=== PATIENT | male | born 1990 | race Caucasian/White ===

== ENCOUNTER 2025-01-21 10:55 | Emergency (ER) | payer MEDICAID, OTHER ==
[~2025-01-21] VITALS: Ht 177.8 cm; Wt 85.3 kg
--- NOTE | 2025-01-21 11:47 | ED.PDOC ---
GI ASSESSMENT HPI Comments 34 year old male presents to the ED with a chief complaint of blood in stool onset today (01/21/25). Patient states for the past week he had been experiencing abdominal pain, loss of appetite past 3 days, lost about 8 lbs in the past week. Patient woke up today experiencing nausea/vomiting, noted blood in vomit and blood in bowel movement. He noticed abdominal pain was improved after the hematemesis, blood in stool. Denies any PMHx as well as chest pain,shortness of breath, fever, chills, dysuria, hematuria. No other symptoms or modifying factors present at this time. Chief Complaint: GI Bleed Time Seen by MD: 11:35 Primary Care Provider: none Reviewed Notes: Medications, Allergies Allergies: Coded Allergies: NO KNOWN ALLERGIES (Unverified , 06/05/15) Information Source: Patient Mode of Arrival: Ambulatory Timing: Hours Duration: Since onset Prehospital treatment: None Quality: Sharp Vomitus: Bloody Stool: Blood Streaked Severity: Moderate Recent: None Recent Hx of: None Pain Location: Diffuse Modifying Factors: Nothing Associated sign and symptoms: Nausea, Vomiting, Hematemesis, Abdominal Pain, Blood in Stool Past Medical History PAST MEDICAL HISTORY: Anxiety, Depression Surgical History: Denies all surgeries Family History Family History: Unknown Social History Smoker: Non-Smoker Alcohol: Heavy Drugs: Denies Drug Use Lives In: Home Constitutional: denies: chills, diaphoresis, fatigue, fever, malaise, sweats, weakness, others EENTM: denies: blurred vision, double vision, ear bleeding, ear discharge, ear drainage, ear pain, ear ringing, eye pain, eye redness, hearing loss, mouth pain, mouth swelling, nasal discharge, nose bleeding, nose congestion, nose pain, photophobia, tearing, throat pain, throat swelling, voice changes, others Respiratory: denies: cough, hemoptysis, orthopnea, SOB at rest, shortness of breath, SOB with excertion, stridor, wheezing, others Cardiovascular: denies: chest pain, dizzy spells, diaphoresis, Dyspnea on exertion, edema, irregular heart beat, left arm pain, lightheadedness, palpitations, PND, syncope, others Gastrointestinal: reports: abdominal pain, hematemesis, nausea, poor appetite, rectal bleeding, vomiting; denies: abdomen distended, blood streaked bowels, constipated, diarrhea, dysphagia, difficulty swallowing, melena, poor fluid in take, rectal pain, others Genitourinary: denies: burning, dysuria, flank pain, frequency, hematuria, incontinence, penile discharge, penile sore, pain, testicle pain, testicle swelling, urgency, others Neurological: denies: dizziness, fainting, headache, left sided numbness, left sided weakness, numbness, paresthesia, pre-existing deficit, right sided numbness, right sided weakness, seizure, speech problems, tingling, tremors, weakness, others Musculoskeletal: denies: back pain, gout, joint pain, joint swelling, muscle pain, muscle stiffness, neck pain, others Integumetry: denies: bruises, change in color, change in hair/nails, dryness, laceration, lesions, lumps, rash, wounds, others Allergic/Immunocompromised: denies: Difficulty Healing, Frequent Infections, Hives, Itching, others Hematologic/Lymphatic: denies: anemia, blood clots, easy bleeding, easy bruising, swollen glands, others Endocrine: reports: unexplained weight loss; denies: excessive hunger, excessi ve sweating, excessive thirst, excessive urination, flushing, intolerance to cold, intolerance to heat, unexplained weight gain, others Psychiatric: denies: anxiety, bipolar disorder, depression, hopeless, panic disorder, schizophrenia, sleepless, suicidal, others All Other Systems: Reviewed and Negative Physical Exam General Appearance: No Apparent Distress, Normal HEENT: Normal ENT Inspection, Pharynx Normal, TMs Normal Neck: Full Range of Motion, Non-Tender, Normal, Normal Inspection Respiratory: Chest Non-Tender, Lungs Clear, No Accessory Muscle Use, No Respiratory Distress, Normal Breath Sounds Cardiovascular: No Edema, No JVD, No Murmur, No Gallop, Normal Peripheral Pulses, Regular Rate/Rhythm Breast Exam: Deferred Gastrointestinal: No Organomegaly, Non Tender, No Pulsatile Mass, Normal Bowel Sounds, Soft Genitalia: Deferred Pelvic: Deferred Rectal: Deferred Extremities: No calf tenderness, Normal capillary refill, Normal inspection, Normal range of motion, Non-tender, No pedal edema Musculoskeletal : Apperance: Normal Neurologic: Alert, mold stamper II-XII nml as Tested, No Motor Deficits, Normal Affect, Normal Mood, No Sensory Deficits Cerebellar Function: Normal Reflexes: Normal Skin: Dry, Normal Color, Warm Lymphatic: No Adenopathy Was a procedure done? Was a procedure done?: No GI differential Dx Differential Diagnosis: Gastritis/PUD, Gastroenteritis, GI hemorrhage, Dehydration, Electrolyte Imbalance, Food Poisoning, Hypovolemia X-Ray, Labs, Meds, VS Vital Signs Date Time Temp Pulse Resp B/P (MAP) Pulse Ox O2 Delivery O2 Flow Rate FiO2 01/21/25 14:11 98.3 86 17 114/80 (91) 98 98.3 01/21/25 11:47 98.1 112 17 124/83 (97) 98 98.1 01/21/25 11:12 97.7 122 21 102/83 (89) 95 97.7 Lab Test 01/21/25 11:50 01/21/25 11:12 Range/Units White Blood Count 7.8 4.4-10.8 10^3/uL Red Blood Count 5.06 4.5-5.90 10^6/uL Hemoglobin 15.3 13.5-17.5 g/dL Hematocrit 44.5 41.0-53.0 % Mean Corpuscular Volume 87.9 80.0-100.0 fL Mean Corpuscular Hemoglobin 30.2 28.0-32.0 pg Mean Corpuscular Hemoglobin Concent 34.3 32.0-36.0 g/dL Red Cell Distribution Width 12.5 11.8-14.3 % Platelet Count 252 140-450 10^3/uL Mean Platelet Volume 8.7 6.9-10.8 fL Neutrophils (%) (Auto) 70.4 37.0-80.0 % Lymphocytes (%) (Auto) 20.7 10.0-50.0 % Monocytes (%) (Auto) 6.9 0.0-12.0 % Eosinophils (%) (Auto) 0.8 0.0-7.0 % Basophils (%) (Auto) 1.2 0.0-2.0 % Neutrophils # (Auto) 5.5 1.6-8.6 10 ^3/uL Lymphocytes # (Auto) 1.6 0.4-5.4 10 ^3/uL Monocytes # (Auto) 0.5 0-1.3 10 ^3/uL Eosinophils # (Auto) 0.1 0-0.8 10 ^3/uL Basophils # (Auto) 0.1 0-0.2 10 ^3/uL Nucleated Red Blood Cells 0.1 % Sodium Level 141 136-145 mmol/L Potassium Level 4.0 3.5-5.1 mmol/L Chloride Level 104 98-107 mmol/L Carbon Dioxide Level 28 20-31 mmol/L Anion Gap 9 5-15 Blood Urea Nitrogen 15 9-23 mg/dL Creatinine 0.96 0.700-1.30 mg/dL Glomerular Filtration Rate Calc 106 >90 mL/min BUN/Creatinine Ratio 15.6 10.0-20.0 Serum Glucose 106 74-106 mg/dL Calcium Level 10.3 8.7-10.4 mg/dL Urine Color Light-yellow Yellow Urine Clarity Clear Clear Urine pH 7.0 5.0-9.0 Urine Specific [place] 1.012 1.001-1.035 Urine Protein Negative Negative Urine Ketones 1+ H Negative Urine Blood Negative Negative /uL Urine Nitrite Negative Negative Urine Bilirubin Negative Negative Urine Urobilinogen Normal Negative mg/dL Urine Leukocyte Esterase Negative Negative /uL Urine RBC 1 0 - 3 /hpf Urine Microscopic WBC 2 0-3 /HPF Urine Squamous Epithelial Cells None seen <5 /hpf Urine Bacteria None seen None Seen /hpf Urine Mucus Few None Seen Urine Glucose Normal Normal mg/dL Current Medications Medications (Trade) Dose Ordered Sig/Prakash Route Start Time Stop Time Status Last Admin Sodium Chloride 1,000 ml @ 1,000 mls/hr Q1H ONCE IV 01/21/25 11:45 01/21/25 12:44 DC 01/21/25 12:39 Pantoprazole Sodium (Protonix) 40 mg ONCE ONCE IV 01/21/25 11:45 01/21/25 11:46 DC 01/21/25 12:40 Ondansetron HCl (Zofran) 4 mg ONCE ONCE IV 01/21/25 11:45 01/21/25 11:46 DC 01/21/25 12:40 Sodium Chloride 1,000 ml @ 1,000 mls/hr Q1H ONCE IV 01/21/25 14:00 01/21/25 14:59 DC 01/21/25 14:18 [facility] [id number] [place] [id number] Ph: [phone] DIAGNOSTIC IMAGING Diagnostic Imaging Report : [id number] Signed PATIENT: HEFELIX HERNÁNDEZCCT: [id number] UNIT: [id number] : 1990 LOC: ER ROOM / BED: / AGE / SEX: 34 / M ADM STATUS: REG ER SERVICE 1137 ORDERING PHYSICIAN: LISE ARECHIGA MD PROCEDURE(s): ABPLIV - CT AB PEL WITH IV CON ONLY REASON: bright red blood per rectum ORDER NUMBER(s): [id number], ACCESSION NUMBER(s): [id number] Exam: CT CT AB PEL WITH IV CON ONLY History: bright red blood per rectum COMPARISON: None Technique: Multidetector spiral CT of the abdomen and pelvis was performed from lung bases to pubic symphysis. Intravenous contrast was administered during this examination. Portal venous imaging was obtained. Axial, coronal and sag ittal multiplanar reformats were performed by the technologist on a separate workstation. Radiation Dose : Abdomen/Pelvis: CTDIvol 10.3 mGy, DLP 602.03 mGy*cm. CONTRAST: Type of contrast: Omni 300 Contrast injected: 100 mL Findings: Lung Bases: No acute or significant lung base finding. Normal heart size. No pleural or pericardial effusion. Liver: Diffuse hepatic steatosis. Gallbladder and biliary Tree: Unremarkable Spleen: Unremarkable Pancreas: The pancreas is normal in appearance without focal lesions or abnormal enhancement. Adrenal Glands: Unremarkable Kidneys: No hydronephrosis. Bladder: Unremarkable Bowel: The stomach is grossly normal in appearance. Small bowel and colon are normal in caliber and distribution. Normal appendix is visualized in the right lower quadrant without findings of appendicitis. Fluid in the colon suggests a diarrheal illness. Ascites: Absent Lymphadenopathy: No mesenteric, retroperitoneal or periportal lymphadenopathy. Abdominal wall and Mesentery: Fluid density in the right inguinal canal. Vasculature: The visualized abdominal aorta is normal in size and caliber. Abdo anselmo and pelvic vessels demonstrate normal enhancement. Pelvic Organs: Unremarkable Musculoskeletal: No aggressive focal bony lesions, acute fractures or dislocation. IMPRESSION: 1. No acute abdominal or pelvic finding. Fluid in the colon suggests a diarrheal illness. Diffuse hepatic steatosis. Small amount of fluid in the right inguinal canal. Radiation optimization: All CT scans at this facility use at least one of these dose optimization techniques: Automated exposure control mA and/or kV adjustment per patient size (includes targeted exams where dose is matched to clinical indication) or iterative reconstruction. HS:Y ATED BY: NOAH HERNANDEZ MD DICTATED DATE/TIME: 01/21/251317 SIGNED BY: NOAH HERNANDEZ MD SIGNED DATE/TIME: 01/21/251317 CC: Time of 1ST Reevaluation: 12:05 Reevaluation 1ST: Unchanged Patient Education/Counseling: Diagnosis, Treatment, Prognosis Family Education/Counseling: No Family Present Additional Information The following tests were ordered, and results were reviewed by me: CBC, BMP, CT AB PEL WITH IV CON I reviewed and agreed with the following test results read by other providers: CT AB PEL WITH IV CON I discussed treatment and results with medical personnel and: patient Comprehensive systems review obtained and negative except for what is stated in the HPI. Departure 1 Departure Time of Disposition: 15:50 (Patient presented with abdominal pain that was concerning for possible appendicits, gastritis, cholecystitis, colitis, gastroenteritis, or orther possible surgical emergency. Data: 1. I ordered and reviewed the result of at least 3 labs including a CBC, BMP, and Urinalysis. 2. I independently interpreted the following tests: CT Abdoment and Pelvis is concerning for benign abdomen .Risk:This patient has a high risk of morbidity due to further diagnostic testing or treatment and may suffer from an acute abdominal process disorder. Fortunately workup reveals benign abdomen and patient can be safely discharged to home with outpatient follow up.) Impression: Primary Impression: Gastroenteritis Disposition: 01 HOME / SELF CARE / HOMELESS Condition: Stable Additional Instructions: You likely have gastroenteritis. It is important to stay well hydrated and well rested. This usually resolves within 1 week. If your symptoms worsen or you have any other concerns please return to the ER. Critical Care Note Critical Care Time?: No Stability Stability form required: No I personally scribed for LISE ARECHIGA MD ([email or web address]) on 01/21/25 at 11:47. Electronically submitted by Suzette Brizuela ([email or web address]). I personally scribed for LISE ARECHIGA MD ([email or web address]) on 01/21/25 at 11:48. Electronically submitted by Suzette Brizuela ([email or web address]). I personally scribed for LISE ARECHIGA MD ([email or web address]) on 01/21/25 at 13:41. Electronically submitted by Suzette Brizuela ([email or web address]). LISE ARECHIGA MD January 21, 2025 11:47
[2025-01-21 12:00] LABS: Basophils # (auto) 0.1 10 ^3/uL (0-0.2); Basophils % (auto) 1.2 % (0.0-2.0); Eosinophils # (auto) 0.1 10 ^3/uL (0-0.8); Eosinophils % (auto) 0.8 % (0.0-7.0); Hematocrit 44.5 % (41.0-53.0); Hemoglobin 15.3 g/dL (13.5-17.5); Lymphocytes # (auto) 1.6 10 ^3/uL (0.4-5.4); Lymphocytes % (auto) 20.7 % (10.0-50.0); Mean Corpuscular Hemoglobin 30.2 pg (28.0-32.0); Mean Corpuscular Hgb Conc. 34.3 g/dL (32.0-36.0); Mean Corpuscular Volume 87.9 fL (80.0-100.0); Monocytes # (auto) 0.5 10 ^3/uL (0-1.3); Monocytes % (auto) 6.9 % (0.0-12.0); Neutrophils # (auto) 5.5 10 ^3/uL (1.6-8.6); Neutrophils % (auto) 70.4 % (37.0-80.0); Nucleated Red Blood Cells % 0.1 %; Platelet Count (auto) 252 10^3/uL (140-450); Red Blood Cells 5.06 10^6/uL (4.5-5.90); Red Cell Distribution Width 12.5 % (11.8-14.3); White Blood Cell 7.8 10^3/uL (4.4-10.8)
[2025-01-21 12:11] LABS: Chloride 104 mmol/L (98-107); Sodium 141 mmol/L (136-145)
[2025-01-21 12:12] LABS: Anion Gap 9 (5-15); Calcium 10.3 mg/dL (8.7-10.4); Carbon Dioxide 28 mmol/L (20-31)
[2025-01-21 12:14] LABS: Urine Bacteria None Seen /hpf (None Seen)
[2025-01-21 12:17] LABS: BUN/Creatinine Ratio 15.6 (10.0-20.0); Blood Urea Nitrogen 15 mg/dL (9-23); Glucose 106 mg/dL (74-106)
[2025-01-21 12:36] LABS: Urine Blood Negative /uL (Negative); Urine Clarity Clear (Clear); Urine Color Light-Yellow (Yellow); Urine Mucus FEW (None Seen); Urine Protein, UAD Negative (Negative); Urine Specific Gravity 1.012 (1.001-1.035); Urine Squamous Epithelial Cell None Seen /hpf (<5); Urine Urobilinogen Normal (Negative); Urine WBC 2 /HPF (0-3)
[2025-01-21] MEDS: SODIUM CHLORIDE 0.9% 1,000 ML IV ONE ×2 (12:39→14:18)
[2025-01-21] MEDS: PANTOPRAZOLE 40 MG/10 ML VIAL INJ IV ONE (12:40)
[2025-01-21] MEDS: ONDANSETRON HCL 4 MG/2 ML VIAL IV ONE (12:40)
[2025-01-21] MEDS: IOHEXOL 300 MG/ML 100ML BOTTLE IJ ONE (13:01)
--- NOTE | 2025-01-21 13:21 | DVH ---
Exam: CT CT AB PEL WITH IV CON ONLY History: bright red blood per rectum COMPARISON: None Technique: Multidetector spiral CT of the abdomen and pelvis was performed from lung bases to pubic symphysis. Intravenous contrast was administered during this examination. Portal venous imaging was obtained. Axial, coronal and sagittal multiplanar reformats were performed by the technologist on a separate workstation. Radiation Dose : Abdomen/Pelvis: CTDIvol 10.3 mGy, DLP 602.03 mGy*cm. CONTRAST: Type of contrast: Omni 300 Contrast injected: 100 mL Findings: Lung Bases: No acute or significant lung base finding. Normal heart size. No pleural or pericardial effusion. Liver: Diffuse hepatic steatosis. Gallbladder and biliary Tree: Unremarkable Spleen: Unremarkable Pancreas: The pancreas is normal in appearance without focal lesions or abnormal enhancement. Adrenal Glands: Unremarkable Kidneys: No hydronephrosis. Bladder: Unremarkable Bowel: The stomach is grossly normal in appearance. Small bowel and colon are normal in caliber and d istribution. Normal appendix is visualized in the right lower quadrant without findings of appendicit is. Fluid in the colon suggests a diarrheal illness. Ascites: Absent Lymphadenopathy: No mesenteric, retroperitoneal or periportal lymphadenopathy. Abdominal wall and Mesentery: Fluid density in the right inguinal canal. Vasculature: The visualized abdominal aorta is normal in size and caliber. Abdominal and pelvic vess els demonstrate normal enhancement. Pelvic Organs: Unremarkable Musculoskeletal: No aggressive focal bony lesions, acute fractures or dislocation. IMPRESSION: 1. No acute abdominal or pelvic finding. Fluid in the colon suggests a diarrheal illness. Diffuse hep atic steatosis. Small amount of fluid in the right inguinal canal. Radiation optimization: All CT scans at this facility use at least one of these dose optimization varun hniques: Automated exposure control mA and/or kV adjustment per patient size (includes targeted exams where dose is matched to clinical indication) or iterative reconstruction. HS:Y
[2025-01-21 14:11] VITALS: BP 114/80; PULSE 86; RESP 17; TEMP 98.3; O2SAT 98
--- NOTE | 2025-01-21 16:08 | ED.PDOC ---
Departure 1 Departure Time of Disposition: 15:50 (Patient presented with abdominal pain that was concerning for possible appendicits, gastritis, cholecystitis, colitis, gastroenteritis, or orther possible surgical emergency. Data: 1. I ordered and reviewed the result of at least 3 labs including a CBC, BMP, and Urinalysis. 2. I independently interpreted the following tests: CT Abdoment and Pelvis is concerning for benign abdomen .Risk:This patient has a high risk of morbidity due to further diagnostic testing or treatment and may suffer from an acute abdominal process disorder. Fortunately workup reveals benign abdomen and patient can be safely discharged to home with outpatient follow up.) Impression: Primary Impression: Gastroenteritis Disposition: 01 HOME / SELF CARE Condition: Stable Referrals: RADHA GROSS MD Additional Instructions: You likely have gastroenteritis. It is important to stay well hydrated and well rested. This usually resolves within 1 week. If your symptoms worsen or you have any other concerns please return to the ER. LISE ARECHIGA MD January 21, 2025 16:08
== END 2025-01-21 16:00 | disposition home or self-care (01) ==
LOC: ER 10:55
DX: K52.9 Noninfective gastroenteritis and colitis, unspecified (principal); F41.8 Other specified anxiety disorders; F10.20 Alcohol dependence, uncomplicated; Y90.9 Presence of alcohol in blood, level not specified
CPT/HCPCS: 36415; 74177; 80048; 81001; 85025; 96361; 96374; 96375; 99285; J2405; J2470; J7030; Q9967

== ENCOUNTER 2025-01-23 09:59 | Inpatient (IN) | payer MEDICAID ==
[~2025-01-23] VITALS: Ht 177.8 cm; Wt 74.5 kg
[2025-01-23 10:49] LABS: Basophils # (auto) 0.1 10 ^3/uL (0-0.2); Basophils % (auto) 0.8 % (0.0-2.0); Eosinophils # (auto) 0 10 ^3/uL (0-0.8); Eosinophils % (auto) 0.2 % (0.0-7.0); Hematocrit 39.9 % (41.0-53.0); Hemoglobin 13.8 g/dL (13.5-17.5); Lymphocytes # (auto) 1.4 10 ^3/uL (0.4-5.4); Lymphocytes % (auto) 17.1 % (10.0-50.0); Mean Corpuscular Hemoglobin 30.3 pg (28.0-32.0); Mean Corpuscular Hgb Conc. 34.7 g/dL (32.0-36.0); Mean Corpuscular Volume 87.3 fL (80.0-100.0); Monocytes # (auto) 0.4 10 ^3/uL (0-1.3); Monocytes % (auto) 4.5 % (0.0-12.0); Neutrophils # (auto) 6.2 10 ^3/uL (1.6-8.6); Neutrophils % (auto) 77.4 % (37.0-80.0); Nucleated Red Blood Cells % 0.1 %; Platelet Count (auto) 280 10^3/uL (140-450); Red Blood Cells 4.56 10^6/uL (4.5-5.90); Red Cell Distribution Width 12.7 % (11.8-14.3)
[2025-01-23] MEDS: SODIUM CHLORIDE 0.9% 1,000 ML IV ONE (10:56)
[2025-01-23] MEDS: PANTOPRAZOLE 40 MG/10 ML VIAL INJ IV ONE (10:56)
--- NOTE | 2025-01-23 11:03 | ED.PDOC ---
GI ASSESSMENT HPI Comments 34 year old male presents to the ED with chief complaint of hematemesis/melena. Patient reports that he has been experiencing black tar colored stools for the past 3 days with associated lower abdominal tenderness and coffee ground emesis since yesterday. Patient notes he had recent food poisoning 2 weeks ago. Patient denies any N/V/D, dizziness, fever, chills, chest pain, SOB, or hematochezia. Chief Complaint: GI Bleed Time Seen by MD: 11:01 Primary Care Provider: none Reviewed Notes: Nurses Notes, Medications, Allergies Allergies: Coded Allergies: NO KNOWN ALLERGIES (Unverified , 06/05/15) Information Source: Patient Mode of Arrival: Ambulatory Timing: Days Duration: Since onset Prehospital treatment: None Quality: Aching Vomitus: Coffee Grounds Stool: Black Severity: Moderate Recent: None Recent Hx of: None Pain Location: Suprapubic Associated sign and symptoms: Hematemesis, Melena, Abdominal Pain Past Medical History PAST MEDICAL HISTORY: Anxiety, Depression Surgical History: Denies all surgeries Family History Family History: Unknown Social History Smoker: Non-Smoker Alcohol: Heavy Drugs: Denies Drug Use Lives In: Home Constitutional: denies: chills, diaphoresis, fatigue, fever, malaise, sweats, weakness, others EENTM: denies: blurred vision, double vision, ear bleeding, ear discharge, ear drainage, ear pain, ear ringing, eye pain, eye redness, hearing loss, mouth pain, mouth swelling, nasal discharge, nose bleeding, nose congestion, nose pain, photophobia, tearing, throat pain, throat swelling, voice changes, others Respiratory: denies: cough, hemoptysis, orthopnea, SOB at rest, shortness of breath, SOB with excertion, stridor, wheezing, others Cardiovascular: denies: chest pain, dizzy spells, diaphoresis, Dyspnea on exertion, edema, irregular heart beat, left arm pain, lightheadedness, palpitations, PND, syncope, others Gastrointestinal: reports: abdominal pain, hematemesis, melena; denies: abdomen distended, blood streaked bowels, constipated, diarrhea, dysphagia, difficulty swallowing, nausea, poor appetite, poor fluid intake, rectal bleeding, rectal pain, vomiting, others Genitourinary: denies: burning, dysuria, flank pain, frequency, hematuria, incontinence, penile discharge, penile sore, pain, testicle pain, testicle swelling, urgency, others Neurological: denies: dizziness, fainting, headache, left sided numbness, left sided weakness, numbness, paresthesia, pre-existing deficit, right sided numbness, right sided weakness, seizure, speech problems, tingling, tremors, weakness, others Musculoskeletal: denies: back pain, gout, joint pain, joint swelling, muscle pain, muscle stiffness, neck pain, others Integumetry: denies: bruises, change in color, change in hair/nails, dryness, laceration, lesions, lumps, rash, wounds, others Hematologic/Lymphatic: denies: anemia, blood clots, easy bleeding, easy bruising, swollen glands, others Endocrine: denies: excessive hunger, excessive sweating, excessive thirst, excessive urination, flushing, intolerance to cold, intolerance to heat, unexplained weight gain, unexplained weight loss, others Psychiatric: denies: anxiety, bipolar disorder, depression, hopeless, panic disorder, schizophrenia, sleepless, suicidal, others All Other Systems: Reviewed and Negative Physical Exam General Appearance: Moderate Distress, Normal HEENT: Normal ENT Inspection, PERRL/EOMI, Pharynx Normal, TMs Normal Neck: Full Range of Motion, Non-Tender, Normal, Normal Inspection Respiratory: Chest Non-Tender, Lungs Clear, No Accessory Muscle Use, No Respiratory Distress, Normal Breath Sounds Cardiovascular: No Edema, No JVD, No Murmur, No Gallop, Normal Peripheral Pulses, Regular Rate/Rhythm, Tachycardia Breast Exam: Deferred Gastrointestinal: Diffuse, Epigastric, No Organomegaly, No Pulsatile Mass, Normal Bowel Sounds, Soft, Tenderness Genitalia: Deferred Pelvic: Deferred Rectal: Deferred Extremities: No calf tenderness, Normal capillary refill, Normal inspection, Normal range of motion, Non-tender, No pedal edema Musculoskeletal : Apperance: Normal Neurologic: Alert, dental treatment coordinator II-XII nml as Tested, No Motor Deficits, Normal Affect, Normal Mood, No Sensory Deficits Cerebellar Function: Normal Reflexes: Normal Skin: Dry, Normal Color, Warm Peripheral Pulses: 1+ carotid (R), 1+ carotid (L) Lymphatic: No Adenopathy EKG EKG : [place]: Normal Cardiac Rhythm: ST Was a procedure done? Was a procedure done?: No GI differential Dx Differential Diagnosis: Gastritis/PUD, Gastroenteritis, GI hemorrhage, Inflammatory BD, Pancreatitis, Dehydration, Diabetes/ DKA, Drug toxicity, Electrolyte Imbalance, Anemia X-Ray, Labs, Meds, VS Vital Signs Date Time Temp Pulse Resp B/P (MAP) Pulse Ox O2 Delivery O2 Flow Rate FiO2 01/23/25 10:20 145 01/23/25 10:20 97.8 125 18 126/75 (92) 99 97.8 Lab Test 01/23/25 10:28 Range/Units White Blood Count 8.0 4.4-10.8 10^3/uL Red Blood Count 4.56 4.5-5.90 10^6/uL Hemoglobin 13.8 13.5-17.5 g/dL Hematocrit 39.9 #L 41.0-53.0 % Mean Corpuscular Volume 87.3 80.0-100.0 fL Mean Corpuscular Hemoglobin 30.3 28.0-32.0 pg Mean Corpuscular Hemoglobin Concent 34.7 32.0-36.0 g/dL Red Cell Distribution Width 12.7 11.8-14.3 % Platelet Count 280 140-450 10^3/uL Mean Platelet Volume 8.8 6.9-10.8 fL Neutrophils (%) (Auto) 77.4 37.0-80.0 % Lymphocytes (%) (Auto) 17.1 10.0-50.0 % Monocytes (%) (Auto) 4.5 0.0-12.0 % Eosinophils (%) (Auto) 0.2 0.0-7.0 % Basophils (%) (Auto) 0.8 0.0-2.0 % Neutrophils # (Auto) 6.2 1.6-8.6 10 ^3/uL Lymphocytes # (Auto) 1.4 0.4-5.4 10 ^3/uL Monocytes # (Auto) 0.4 0-1.3 10 ^3/uL Eosinophils # (Auto) 0 0-0.8 10 ^3/uL Basophils # (Auto) 0.1 0-0.2 10 ^3/uL Nucleated Red Blood Cells 0.1 % Prothrombin Time 11.4 9.3-11.8 sec Prothrombin Time INR 1.08 0.9-1.15 Activated Partial Thromboplast Time 25.9 24.5-34.5 SEC Sodium Level 139 136-145 mmol/L Potassium Level 4.2 3.5-5.1 mmol/L Chloride Level 102 98-107 mmol/L Carbon Dioxide Level 28 20-31 mmol/L Anion Gap 9 5-15 Blood Urea Nitrogen 14 9-23 mg/dL Creatinine 0.94 0.700-1.30 mg/dL Glomerular Filtration Rate Calc 109 >90 mL/min BUN/Creatinine Ratio 14.9 10.0-20.0 Serum Glucose 106 74-106 mg/dL Lactic Acid Level 1.6 0.4-2.0 mmol/L Calcium Level 9.6 8.7-10.4 mg/dL Total Bilirubin 0.7 0.2-1.0 mg/dL Aspartate Amino Transferase (AST) 11 L 13-40 U/L Alanine Aminotransferase (ALT) 23 7-40 U/L Alkaline Phosphatase 58 46-116 U/L Total Protein 7.4 5.7-8.2 g/dL Albumin 5.0 H 3.2-4.8 g/dL Lipase 43 12-53 U/L Current Medications Medications (Trade) Dose Ordered Sig/Prakash Route Start Time Stop Time Status Last Admin Sodium Chloride 1,000 ml @ 1,000 mls/hr Q1H ONCE IV 01/23/25 10:30 01/23/25 11:29 DC 01/23/25 10:56 Pantoprazole Sodium (Protonix) 40 mg ONCE ONCE IV 01/23/25 10:30 01/23/25 10:31 DC 01/23/25 10:56 X-Ray, Labs, Meds, VS Comment Course in the emergency department eventful patient came in because of GI bleed from the vomitus which is blackish to the rectal bleeding and abdominal from EKG shows sinus tachycardia at 145 CBC normal CMP negative Lactic acid 1.6 Lipase 43 INR 1.08 Type and screen Patient will be admitted for further care Time of 1ST Reevaluation: 12:01 Reevaluation 1ST: Unchanged Time of 2ND Reevaluation: 12:17 Reevaluation 2ND: Unchanged Patient Education/Counseling: Diagnosis, Treatment, Prognosis Family Education/Counseling: Diagnosis, Treatment, Prognosis, No Family Present Departure 1 Departure Time of Disposition: 12:18 Impression: Primary Impression: Acute GI bleeding Additional Impression: Tachycardia determined by examination of pulse Disposition: ADMITTED INPATIENT Admit to: Tele Condition: Serious Critical Care Note Critical Care Time?: No Stability Stability form required: Yes Unstable for transfer: Telemetry monitoring (Telemetry monitoring required), Requires medication (Requires Med for stabilization) Heart Score Heart Score: Heart Score Response (Comments) Value History N/A 0 EKG N/A 0 Age <45 0 Risk Factors No known risk factors 0 Troponin N/A 0 Total 0 I personally scribed for WILIAN POWELL MD ([email or web address]) on 01/23/25 at 11:03. Electronically submitted by Abelino Norton ([email or web address]). WILIAN POWELL MD January 23, 2025 11:03
[2025-01-23 11:05] LABS: INR 1.08 (0.9-1.15); Partial Thromboplastin Time 25.9 SEC (24.5-34.5); Prothrombin Time 11.4 sec (9.3-11.8)
[2025-01-23 11:06] LABS: Alanine Aminotransferase 23 U/L (7-40); Alkaline Phosphatase 58 U/L (46-116); Anion Gap 9 (5-15); BUN/Creatinine Ratio 14.9 (10.0-20.0); Bilirubin, Total 0.7 mg/dL (0.2-1.0); Blood Urea Nitrogen 14 mg/dL (9-23); Calcium 9.6 mg/dL (8.7-10.4); Carbon Dioxide 28 mmol/L (20-31); Chloride 102 mmol/L (98-107); Lipase 43 U/L (12-53); Potassium 4.2 mmol/L (3.5-5.1); Sodium 139 mmol/L (136-145); Total Protein 7.4 g/dL (5.7-8.2)
[2025-01-23 11:07] LABS: Aspartate Aminotransferase 11 U/L (13-40); Glucose 106 mg/dL (74-106)
--- NOTE | 2025-01-23 14:44 | DVHHP2 ---
History of Present Illness Reason for Visit: Coffee-ground emesis and black colored stools for last three days. History of Present Illness 34-year-old male with a no significant past medical history except anxiety and depression, chronic alcoholism initially presented to the hospital with a diarrhea for last three days. Patient was here seen two days ago for the same and his symptoms out better and he was discharged from ER. Patient has stated that he started having diarrhea again associated with a black stool with a bright red as well as coffee-ground emesis. Also complaining of lower abdominal pain. Recent CT abdomen and pelvis was done which shows no evidence of acute pathology. Patient was recommended to be admitted. Patient denies any NSAID use but does admit to alcohol use. GI: GI bleed, Other (Diarrhea.) Past Surgical History: Hernia Repair Family History: None Smoke: No ALCOHOL: heavy Review of Systems Review of Systems Twelve review of system are negative besides mentioned above. 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 Labs/Xrays Labs Test 01/23/25 10:28 Range/Units White Blood Count 8.0 4.4-10.8 10^3/uL Red Blood Count 4.56 4.5-5.90 10^6/uL Hemoglobin 13.8 13.5-17.5 g/dL Hematocrit 39.9 #L 41.0-53.0 % Mean Corpuscular Volume 87.3 80.0-100.0 fL Mean Corpuscular Hemoglobin 30.3 28.0-32.0 pg Mean Corpuscular Hemoglobin Concent 34.7 32.0-36.0 g/dL Red Cell Distribution Width 12.7 11.8-14.3 % Platelet Count 280 140-450 10^3/uL Mean Platelet Volume 8.8 6.9-10.8 fL Neutrophils (%) (Auto) 77.4 37.0-80.0 % Lymphocytes (%) (Auto) 17.1 10.0-50.0 % Monocytes (%) (Auto) 4.5 0.0-12.0 % Eosinophils (%) (Auto) 0.2 0.0-7.0 % Basophils (%) (Auto) 0.8 0.0-2.0 % Neutrophils # (Auto) 6.2 1.6-8.6 10 ^3/uL Lymphocytes # (Auto) 1.4 0.4-5.4 10 ^3/uL Monocytes # (Auto) 0.4 0-1.3 10 ^3/uL Eosinophils # (Auto) 0 0-0.8 10 ^3/uL Basophils # (Auto) 0.1 0-0.2 10 ^3/uL Nucleated Red Blood Cells 0.1 % Prothrombin Time 11.4 9.3-11.8 sec Prothrombin Time INR 1.08 0.9-1.15 Activated Partial Thromboplast Time 25.9 24.5-34.5 SEC Sodium Level 139 136-145 mmol/L Potassium Level 4.2 3.5-5.1 mmol/L Chloride Level 102 98-107 mmol/L Carbon Dioxide Level 28 20-31 mmol/L Anion Gap 9 5-15 Blood Urea Nitrogen 14 9-23 mg/dL Creatinine 0.94 0.700-1.30 mg/dL Glomerular Filtration Rate Calc 109 >90 mL/min BUN/Creatinine Ratio 14.9 10.0-20.0 Serum Glucose 106 74-106 mg/dL Lactic Acid Level 1.6 0.4-2.0 mmol/L Calcium Level 9.6 8.7-10.4 mg/dL Total Bilirubin 0.7 0.2-1.0 mg/dL Aspartate Amino Transferase (AST) 11 L 13-40 U/L Alanine Aminotransferase (ALT) 23 7-40 U/L Alkaline Phosphatase 58 46-116 U/L Total Protein 7.4 5.7-8.2 g/dL Albumin 5.0 H 3.2-4.8 g/dL Lipase 43 12-53 U/L Assessment/Plan Assessment/Plan 34-year-old male with a known history of anxiety and depression currently not on any medications, chronic alcoholism presented to the hospital with coffee- ground emesis along with the diarrhea and black stools found to have 1. Hematemesis 2.Melena rule out upper GI bleed 3. Diarrhea rule out C diff 4. Chronic alcoholism -admit to med surge, clear liquid diet, Protonix, GI consultation Plan discussed with: Patient My Orders Orders - MONICA BONNER MD Procedure Category Date Status Time Admit ADMIT 01/23/25 Transmitted 14:35 Code Status CODE 01/23/25 Transmitted 14:35 0.9% Ns 1000 Ml PHA 01/23/25 Transmitted 14:45 Hydrocodone-Acet PHA 01/23/25 Transmitted 5/325mg Tab ([place] 14:45 Ondansetron Hcl PHA 01/23/25 Transmitted (Zofran) 14:45 Condition: Fair ISABEL 01/23/25 Transmitted 14:35 Acetaminophen Tablet PHA 01/23/25 Transmitted (Tylenol Tablet) 14:45 Clear Liq Diet DIET 01/23/25 Transmitted Dinner Morphine Sulfate PHA 01/23/25 Transmitted Injection 14:45 * Gi Dvh Grill Attendant CONS 01/23/25 Transmitted 14:35 Pantoprazole PHA 01/23/25 Transmitted (Protonix) 22:00 Clostridium Difficile CHRISTIANO 01/23/25 Transmitted Toxin 14:35 Date of Service: January 23, 2025 Billing Provider: MONICA BONNER MD Common Visit Codes: NOT BILLABLE MONICA BONNER MD January 23, 2025 14:44
[2025-01-23] MEDS ORDERED: HYDROcodone-ACET 5/325MG TAB PO PRN (14:45)
[2025-01-23] MEDS ORDERED: ACETAMINOPHEN 325 MG TAB PO PRN (14:45)
[2025-01-23] MEDS ORDERED: MORPHINE SULFATE INJ 2 MG/ml SYRG IV PRN (14:45)
[2025-01-23] MEDS: SODIUM CHLORIDE 0.9% 1,000 ML IV SCH (14:45)
[2025-01-23 18:30] VITALS: BP 113/75; PULSE 100; RESP 15; TEMP 99.1; O2SAT 98
[2025-01-23 20:14] VITALS: BP 113/75; PULSE 100; RESP 15; TEMP 99.1; O2SAT 98
[2025-01-23 21:00] VITALS: BP 117/76; PULSE 94; RESP 16; TEMP 98.4; O2SAT 99
--- NOTE | 2025-01-23 22:17 | DVHINCON2 ---
Date of service: January 23, [address] Gtz Reason for Consultation GI bleed History of Present Illness 34-year-old male presented with moderate amount of rectal bleeding mixed with clots followed by melena and one episode of coffee ground emesis. Patient was here seen two days ago for lower abd pain and dark stools ;his symptoms got better and he was discharged from ER. Patient has stated that he started having diarrhea again associated with bright red blood with clots followed by liquid melena as well as coffee-ground emesis. Recent CT abdomen and pelvis was done which shows no evidence of acute pathology. Patient denies any NSAID use but does admit to alcohol use. Past Medical History Anxiety and depression, chronic alcoholism Past Surgical History Past Surgical History: Hernia Repair Family History: Patient reports no known family medical history. Allergies: Coded Allergies: NO KNOWN ALLERGIES (Unverified , 06/05/15) Home Meds No Active Prescriptions or Reported Meds Current Medications Current Medications Medications (Trade) Dose Ordered Sig/Prakash Route PRN Reason Start Time Stop Time Status Last Admin Sodium Chloride 1,000 ml @ 120 mls/hr Q8H20M IV 01/23/25 14:45 Acetaminophen/ Hydrocodone Bitart ([place] 5/325MG Tab) 1 tab Q4HP PRN PO MODERATE PAIN (4-6 PAIN SCALE) 01/23/25 14:45 Ondansetron HCl (Zofran) 4 mg Q4HP PRN IV NAUSEA / VOMITING 01/23/25 14:45 Acetaminophen (Tylenol Tablet) 650 mg Q6HP PRN PO PAIN SCALE 1-3 OR TEMP>100.4 01/23/25 14:45 Morphine Sulfate 2 mg Q4HPRN PRN IV SEVERE PAIN (7-10 PAIN SCALE) 01/23/25 14:45 Pantoprazole Sodium (Protonix) 40 mg BID IV 01/23/25 22:00 Review of Systems No prior endoscopy or colonoscopy Vital Signs Vital Signs Date Time Temp Pulse Resp B/P (MAP) Pulse Ox O2 Delivery O2 Flow Rate FiO2 01/23/25 21:00 98.4 94 16 117/76 (90) 99 98.4 01/23/25 14:30 Room Air* 0 21 Physical Exam HEENT pupils are reactive Neck is supple CV is S1-S2 regular rate and rhythm Respiratory are clear GI positive bowel sounds soft nondistended nontender no guarding no rigidity Extremities no 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 Labs/Diagnostic Data Labs Test 01/23/25 10:28 Range/Units White Blood Count 8.0 4.4-10.8 10^3/uL Red Blood Count 4.56 4.5-5.90 10^6/uL Hemoglobin 13.8 13.5-17.5 g/dL Hematocrit 39.9 #L 41.0-53.0 % Mean Corpuscular Volume 87.3 80.0-100.0 fL Mean Corpuscular Hemoglobin 30.3 28.0-32.0 pg Mean Corpuscular Hemoglobin Concent 34.7 32.0-36.0 g/dL Red Cell Distribution Width 12.7 11.8-14.3 % Platelet Count 280 140-450 10^3/uL Mean Platelet Volume 8.8 6.9-10.8 fL Neutrophils (%) (Auto) 77.4 37.0-80.0 % Lymphocytes (%) (Auto) 17.1 10.0-50.0 % Monocytes (%) (Auto) 4.5 0.0-12.0 % Eosinophils (%) (Auto) 0.2 0.0-7.0 % Basophils (%) (Auto) 0.8 0.0-2.0 % Neutrophils # (Auto) 6.2 1.6-8.6 10 ^3/uL Lymphocytes # (Auto) 1.4 0.4-5.4 10 ^3/uL Monocytes # (Auto) 0.4 0-1.3 10 ^3/uL Eosinophils # (Auto) 0 0-0.8 10 ^3/uL Basophils # (Auto) 0.1 0-0.2 10 ^3/uL Nucleated Red Blood Cells 0.1 % Prothrombin Time 11.4 9.3-11.8 sec Prothrombin Time INR 1.08 0.9-1.15 Activated Partial Thromboplast Time 25.9 24.5-34.5 SEC Sodium Level 139 136-145 mmol/L Potassium Level 4.2 3.5-5.1 mmol/L Chloride Level 102 98-107 mmol/L Carbon Dioxide Level 28 20-31 mmol/L Anion Gap 9 5-15 Blood Urea Nitrogen 14 9-23 mg/dL Creatinine 0.94 0.700-1.30 mg/dL Glomerular Filtration Rate Calc 109 >90 mL/min BUN/Creatinine Ratio 14.9 10.0-20.0 Serum Glucose 106 74-106 mg/dL Lactic Acid Level 1.6 0.4-2.0 mmol/L Calcium Level 9.6 8.7-10.4 mg/dL Total Bilirubin 0.7 0.2-1.0 mg/dL Aspartate Amino Transferase (AST) 11 L 13-40 U/L Alanine Aminotransferase (ALT) 23 7-40 U/L Alkaline Phosphatase 58 46-116 U/L Total Protein 7.4 5.7-8.2 g/dL Albumin 5.0 H 3.2-4.8 g/dL Lipase 43 12-53 U/L CT SCAN ABD PELVIS IMPRESSION: 1. No acute abdominal or pelvic finding. Fluid in the colon suggests a diarrheal illness. Diffuse hepatic steatosis. Small amount of fluid in the right inguinal canal. Problems(with codes): (1) Coffee ground emesis (2) Melena (3) Acute GI bleeding (4) Gastroenteritis Plan/Recommendation PLAN IV fluid hydration IV Protonix 40 mg q.12 hours Clear liquid diet Carafate suspension 1 g p.o. 4 times a day Monitor serial H&H Awaiting stool studies Pain control and Zofran as needed for nausea and vomiting Patient will likely need an endoscopy to rule out Katy-Andino tear peptic ulcer disease or GERD ; I will schedule on 01/25/2025 If the above endoscopy is negative then a colonoscopy will be considered to rule out colitis Plan discussed with: Patient, Spouse RADHA GROSS MD January 23, 2025 22:17
[2025-01-23] MEDS: PANTOPRAZOLE 40 MG/10 ML VIAL INJ IV SCH (22:45)
[2025-01-24 01:00] VITALS: BP 103/69; PULSE 94; RESP 17; TEMP 98.1; O2SAT 98
[2025-01-24 05:00] VITALS: BP 126/77; PULSE 98; RESP 19; TEMP 97.6; O2SAT 98
[2025-01-24] MEDS: SUCRALFATE 1 GM/10 ML ORAL SUSP PO SCH (05:57)
--- NOTE | 2025-01-24 06:40 | DVH ---
EXAM: XR Chest, 1 View CLINICAL INDICATION: For GI procedure TECHNIQUE: Frontal view of the chest. COMPARISON: None FINDINGS: LUNGS AND PLEURAL SPACES: Unremarkable. No consolidation. No pneumothorax. HEART: Unremarkable. No cardiomegaly. MEDIASTINUM: Unremarkable. Normal mediastinal contour. BONES/JOINTS: Unremarkable. No acute fracture. OTHER FINDINGS: . IMPRESSION: No acute cardiopulmonary process.
[2025-01-24 06:51] LABS: Basophils # (auto) 0 10 ^3/uL (0-0.2); Basophils % (auto) 0.5 % (0.0-2.0); Eosinophils # (auto) 0.1 10 ^3/uL (0-0.8); Eosinophils % (auto) 1.6 % (0.0-7.0); Hematocrit 30.6 % (41.0-53.0); Hemoglobin 10.7 g/dL (13.5-17.5); Lymphocytes # (auto) 1.7 10 ^3/uL (0.4-5.4); Lymphocytes % (auto) 28.9 % (10.0-50.0); Mean Corpuscular Hemoglobin 30.4 pg (28.0-32.0); Mean Corpuscular Hgb Conc. 34.8 g/dL (32.0-36.0); Mean Corpuscular Volume 87.3 fL (80.0-100.0); Monocytes # (auto) 0.5 10 ^3/uL (0-1.3); Monocytes % (auto) 7.7 % (0.0-12.0); Neutrophils # (auto) 3.7 10 ^3/uL (1.6-8.6); Neutrophils % (auto) 61.3 % (37.0-80.0); Nucleated Red Blood Cells % 0.1 %; Platelet Count (auto) 208 10^3/uL (140-450); Red Blood Cells 3.51 10^6/uL (4.5-5.90); Red Cell Distribution Width 12.4 % (11.8-14.3)
[2025-01-24 07:03] LABS: Urine Bacteria None Seen /hpf (None Seen)
[2025-01-24 07:44] LABS: Urine Blood Negative /uL (Negative); Urine Clarity Clear (Clear); Urine Color Light-Yellow (Yellow); Urine Mucus FEW (None Seen); Urine Protein, UAD Negative (Negative); Urine Specific Gravity 1.021 (1.001-1.035); Urine Squamous Epithelial Cell None Seen /hpf (<5); Urine Urobilinogen Normal (Negative); Urine WBC 3 /HPF (0-3)
[2025-01-24 08:00] VITALS: RESP 18
[2025-01-24 13:00] VITALS: BP 125/75; PULSE 83; RESP 18; TEMP 98.3; O2SAT 97
--- NOTE | 2025-01-24 14:09 | DVHPN2 ---
Subjective Patient denies any blood in his stool. 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 Medications Current Medications Medications Dose Ordered Sig/Prakash Route Start Time Stop Time Status Last Admin Dose Admin Sodium Chloride 1,000 ml @ 120 mls/hr Q8H20M IV 01/23/25 14:45 01/24/25 11:37 120 MLS/HR Acetaminophen/ Hydrocodone Bitart 1 tab Q4HP PRN PO 01/23/25 14:45 Ondansetron HCl 4 mg Q4HP PRN IV 01/23/25 14:45 Acetaminophen 650 mg Q6HP PRN PO 01/23/25 14:45 Morphine Sulfate 2 mg Q4HPRN PRN IV 01/23/25 14:45 Pantoprazole Sodium 40 mg BID IV 01/23/25 22:00 01/24/25 11:31 40 MG Sucralfate 1 gm QID@0600,1130,1700,2200 PO 01/24/25 06:00 01/24/25 11:31 1 GM Laboratory Results Laboratory Tests 01/23/25 10:28 01/24/25 05:55 Urinalysis Test 01/24/25 06:55 Urine Color Light-yellow (Yellow) Urine Clarity Clear (Clear) Urine pH 6.0 (5.0-9.0) Urine Specific [place] 1.021 (1.001-1.035) Urine Protein Negative (Negative) Urine Ketones 2+ (Negative) H Urine Blood Negative /uL (Negative) Urine Nitrite Negative (Negative) Urine Bilirubin Negative (Negative) Urine Urobilinogen Normal mg/dL (Negative) Urine Leukocyte Esterase Negative /uL (Negative) Urine RBC 1 /hpf (0 - 3) Urine Microscopic WBC 3 /HPF (0-3) Urine Squamous Epithelial Cells None seen /hpf (<5) Urine Bacteria None seen /hpf (None Seen) Urine Mucus Few (None Seen) Urine Glucose Normal mg/dL (Normal) Assessment/Plan Assessment/Plan 34-year-old male with a known history of anxiety and depression currently not on any medications, chronic alcoholism presented to the hospital with coffee- ground emesis along with the diarrhea and black stools found to have 1. Hematemesis 2.Melena rule out upper GI bleed 3. Diarrhea rule out C diff 4. History of chronic alcoholism, quit 10 years ago 5. Chronic marijuana use -admit to med surge, clear liquid diet, Protonix, GI consultation appreciated -endoscopy per GI. Plan discussed with: Patient My Orders Orders - MONICA BONNER MD Procedure Category Date Status Time Admit ADMIT 01/23/25 Transmitted 14:35 Code Status CODE 01/23/25 Transmitted 14:35 Sodium Chloride 0.9% PHA 01/23/25 In Process 14:45 Hydrocodone-Acet PHA 01/23/25 In Process 5/325mg Tab ([place] 14:45 Ondansetron Hcl PHA 01/23/25 In Process (Zofran) 14:45 Condition: Fair ISABEL 01/23/25 In Process 14:35 Acetaminophen Tablet PHA 01/23/25 In Process (Tylenol Tablet) 14:45 Clear Liq Diet DIET 01/23/25 Transmitted Dinner Morphine Sulfate PHA 01/23/25 In Process Injection 14:45 * Gi Dvh Agricultural Economics Teacher CONS 01/23/25 Transmitted 14:35 Pantoprazole PHA 01/23/25 In Process (Protonix) 22:00 Clostridium Difficile CHRISTIANO 01/23/25 In Process Toxin 14:35 * Dietary Consult CONS 01/23/25 Transmitted 21:49 Date of Service: January 24, 2025 Billing Provider: MONICA BONNER MD Common Visit Codes: NOT BILLABLE MONICA BONNER MD January 24, 2025 14:09
[2025-01-24] MEDS: ONDANSETRON HCL 4 MG/2 ML VIAL IV PRN (16:30)
[2025-01-24 17:00] VITALS: BP 109/65; PULSE 109; RESP 16; TEMP 98; O2SAT 98
[2025-01-24] MEDS: SODIUM CHLORIDE 0.9% 1,000 ML IV SCH (17:45)
[2025-01-24 18:34] LABS: Basophils # (auto) 0 10 ^3/uL (0-0.2); Basophils % (auto) 0.3 % (0.0-2.0); Eosinophils # (auto) 0.1 10 ^3/uL (0-0.8); Eosinophils % (auto) 0.5 % (0.0-7.0); Hematocrit 27.9 % (41.0-53.0); Hemoglobin 9.5 g/dL (13.5-17.5); Lymphocytes # (auto) 1.8 10 ^3/uL (0.4-5.4); Lymphocytes % (auto) 14.6 % (10.0-50.0); Mean Corpuscular Hemoglobin 29.7 pg (28.0-32.0); Mean Corpuscular Hgb Conc. 33.8 g/dL (32.0-36.0); Mean Corpuscular Volume 87.9 fL (80.0-100.0); Monocytes # (auto) 0.7 10 ^3/uL (0-1.3); Monocytes % (auto) 5.4 % (0.0-12.0); Neutrophils # (auto) 9.6 10 ^3/uL (1.6-8.6); Neutrophils % (auto) 79.2 % (37.0-80.0); Platelet Count (auto) 246 10^3/uL (140-450); Red Blood Cells 3.18 10^6/uL (4.5-5.90); Red Cell Distribution Width 12.4 % (11.8-14.3); White Blood Cell 12.2 10^3/uL (4.4-10.8)
[2025-01-24 21:00] VITALS: BP 116/66; PULSE 127; RESP 18; TEMP 98.2; O2SAT 98
[2025-01-24] MEDS: metroNIDAZOLE 500MG/100ML 100 ML IV SCH (21:53)
[2025-01-25] VITALS (8 sets, daily range): BP systolic 121–135; BP diastolic 59–71; PULSE 111–135; RESP 16–18; TEMP 98.2–98.8; O2SAT 97–100
[2025-01-25 08:02] LABS: Eosinophils # (auto) 0.1 10 ^3/uL (0-0.8); Hemoglobin 8.1 g/dL (13.5-17.5); Lymphocytes # (auto) 1.8 10 ^3/uL (0.4-5.4); Monocytes # (auto) 0.4 10 ^3/uL (0-1.3); Neutrophils # (auto) 4.3 10 ^3/uL (1.6-8.6)
[2025-01-25 08:04] LABS: Basophils # (auto) 0 10 ^3/uL (0-0.2); Basophils % (auto) 0.6 % (0.0-2.0); Eosinophils % (auto) 0.9 % (0.0-7.0); Hematocrit 23.6 % (41.0-53.0); Lymphocytes % (auto) 27.2 % (10.0-50.0); Mean Corpuscular Hgb Conc. 34.2 g/dL (32.0-36.0); Mean Corpuscular Volume 87.6 fL (80.0-100.0); Monocytes % (auto) 6.3 % (0.0-12.0); Platelet Count (auto) 200 10^3/uL (140-450); Red Cell Distribution Width 12.8 % (11.8-14.3); White Blood Cell 6.7 10^3/uL (4.4-10.8)
[2025-01-25] MEDS: cefTRIAXone 1GM/50ML D5W 50 ML IV SCH (08:23)
[2025-01-25] MEDS: MAGNESIUM CITRATE SOLUTION 300 ML BTL PO ONE (08:23)
--- NOTE | 2025-01-25 14:00 | ECG ---
[facility] Test Date: 2025-01-23 Test Time: 10:20:57 Pat Name: ISAC SERRATO Department: ED Room: 0232T Gender: M Us Administrative Law Judge: GEORGIE : 1990 Requested By: WILIAN POWELL Order Number: [id number] Reading MD: Edouard Benavides Measurements Intervals [place] Rate: 145 P: 76 WA: 115 QRS: 57 QRSD: 88 T: -13 QT: 281 QTc: 437 Interpretive Statements Sinus tachycardia Multiple ventricular premature complexes Aberrant conduction of SV complex(es) Inferior infarct, age indeterminate Lateral leads are also involved Baseline wander in lead(s) I,III,aVL,aVF,V1,V2,V3 Electronically Signed On 01-28-2025 11:39:19 PDT by Edouard Benavides Please click the below link to view image of tracing.
[2025-01-25] MEDS ORDERED: MIDAZOLAM HCL 2MG/2ML 2ml VIAL (1mg/ml) ONE (14:38)
[2025-01-25] MEDS ORDERED: fentaNYL CITRATE 100 MCG/2 ML VL ONE (14:38)
[2025-01-25] MEDS ORDERED: DexAMETHasone SOD PHOS 10MG/1ML VIAL INJ ONE (14:47)
[2025-01-25] MEDS ORDERED: KETAMINE 50mg/ML 1ml syringe ONE (14:47)
[2025-01-25] MEDS ORDERED: PROPOFOL 10 MG/ML 20 ML IV ONE (14:47)
[2025-01-25] MEDS ORDERED: EPINEPHrine HCL 1 MG/10 ML SYRG ONE (14:53)
--- NOTE | 2025-01-25 14:58 | DVHPN2 ---
Subjective Patient had a bloody bowel movement, hemoglobin dropped to 8.1. 1 unit of packed RBC has been ordered . Patient is currently scheduled for possible colonoscopy today. 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 Medications Current Medications Medications Dose Ordered Sig/Prakash Route Start Time Stop Time Status Last Admin Dose Admin Acetaminophen/ Hydrocodone Bitart 1 tab Q4HP PRN PO 01/23/25 14:45 Ondansetron HCl 4 mg Q4HP PRN IV 01/23/25 14:45 01/25/25 12:23 4 MG Acetaminophen 650 mg Q6HP PRN PO 01/23/25 14:45 Morphine Sulfate 2 mg Q4HPRN PRN IV 01/23/25 14:45 Pantoprazole Sodium 40 mg BID IV 01/23/25 22:00 01/25/25 08:22 40 MG Sucralfate 1 gm QID@0600,1130,1700,2200 PO 01/24/25 06:00 01/25/25 05:38 1 GM Alprazolam 0.5 mg Q8HPRN PRN PO 01/24/25 17:30 Sodium Chloride 1,000 ml @ 150 mls/hr Q6H40M IV 01/24/25 17:45 01/25/25 08:23 150 MLS/HR Ceftriaxone Sodium 50 ml @ 100 mls/hr DAILY@09 IV 01/25/25 09:00 01/25/25 08:23 100 MLS/HR Metronidazole 100 ml @ 100 mls/hr Q8HR IV 01/24/25 22:00 01/25/25 13:45 100 MLS/HR Laboratory Results Laboratory Tests 01/23/25 10:28 01/25/25 07:36 Urinalysis Test 01/24/25 06:55 Urine Color Light-yellow (Yellow) Urine Clarity Clear (Clear) Urine pH 6.0 (5.0-9.0) Urine Specific [place] 1.021 (1.001-1.035) Urine Protein Negative (Negative) Urine Ketones 2+ (Negative) H Urine Blood Negative /uL (Negative) Urine Nitrite Negative (Negative) Urine Bilirubin Negative (Negative) Urine Urobilinogen Normal mg/dL (Negative) Urine Leukocyte Esterase Negative /uL (Negative) Urine RBC 1 /hpf (0 - 3) Urine Microscopic WBC 3 /HPF (0-3) Urine Squamous Epithelial Cells None seen /hpf (<5) Urine Bacteria None seen /hpf (None Seen) Urine Mucus Few (None Seen) Urine Glucose Normal mg/dL (Normal) Microbiology Microbiology Date/Time Source Procedure Growth Status 01/24/25 03:50 Stool Stool Culture - Preliminary Resulted 01/24/25 03:50 Stool Shiga Toxin I & II - Final Resulted Assessment/Plan Assessment/Plan 34-year-old male with a known history of anxiety and depression currently not on any medications, chronic alcoholism presented to the hospital with coffee- ground emesis along with the diarrhea and black stools found to have 1. Hematemesis 2.Melena rule out upper GI bleed 3. Diarrhea rule out C diff 4. History of chronic alcoholism, quit 10 years ago 5. Chronic marijuana use 6. Acute anemia secondary to JORGE LUIS -transfuse 1 unit of packed RBC,, Protonix, colonoscopy today Plan discussed with: Patient My Orders Orders - MONICA BONNER MD Procedure Category Date Status Time Alprazolam Tablet PHA 01/24/25 In Process (Xanax Tablet) 17:30 Sodium Chloride 0.9% PHA 01/24/25 In Process 17:45 Ceftriaxone 1gm/50ml PHA 01/25/25 In Process D5w (Rocephin) 09:00 Metronidazole PHA 01/24/25 In Process 500mg/100ml (Flagyl 22:00 Transfuse Blood ORDERS 01/25/25 Transmitted Product 12:31 Date of Service: January 25, 2025 Billing Provider: MONICA BONNER MD Common Visit Codes: NOT BILLABLE MONICA BONNER MD January 25, 2025 14:58
--- NOTE | 2025-01-25 15:31 | DVHOP2 ---
Operative Report DATE OF OPERATION: 01/25/25 PROCEDURE: Upper Endoscopy with biopsy and injection control of bleeding PREOPERATIVE INDICATION: The patient is a 34 -year-old male undergoing endoscopy for GI bleed melena and bright red blood per rectum POSTOPERATIVE DIAGNOSES: 1. Patient had a 1.5-2 cm duodenal bulb ulcer on the anterior surface of the duodenal bulb and postbulbar area with the overlying clot that could not be dislodged ; no active bleeding This was injected with 6 mL of [id number] epinephrine in all the edges and the base of the ulcer with no active bleeding or oozing at the end of the procedure 2. [id number] gastroduodenitis with hyperemia erythema and superficial erosions, no fresh or old blood in the stomach PROCEDURE PERFORMED BY: Radha Garcia GI NURSE: Ksenia SCOPE: Olympus videoendoscope. ASA CLASS: 2. PREOPERATIVE MEDICATIONS: Mac sedationDr. Talbert PROCEDURE IN DETAIL: After obtaining an informed consent, the patient was placed on left lateral decubitus position. The patient was then sedated with the above medications. A bite block was placed between his teeth. The endoscope was then passed through the oropharynx, into the esophagus, and through the stomach and pylorus up to the second and third part of the duodenum. The endoscope was then withdrawn. The 2nd and 3rd part of the duodenal showed duodenitis. In the duodenal bulb and postbulbar area there was an active ulcer This was about 1.5-2 cm in size on the anterior surface of the duodenal bulb with a overlying clot which could not be dislodged with irrigation There was no active bleeding and only minimal oozing from the edge of the ulcer. This was injected with 6 mL of [id number] epinephrine There was no further active bleeding or oozing at the end of the procedure. The pre-pyloric area antrum and body showed mild gastritis with erosions On retroflexion the fundus cardia and angularis were normal. There was no other fresh or old blood in the stomach. The remaining distal and proximal esophagus and oropharynx were unremarkable The patient tolerated the procedure well without difficulty. COMPLICATIONS : None SPECIMENS: Duodenal biopsy Gastric biopsy DISPOSITION: Transfer to floor Stable PLAN: 1. Await for biopsy result 2. Will place pt on Protonix 40 mg bid IV 3. Ice chips and if he tolerates that we will start him on clear liquids again 4. Monitor labs and if he is stable then we will slowly advance diet in 24-48 hours 5. DC aspirin NSAIDs smoking alcohol 6. Outpatient follow up with me in 4-6 weeks to review results and discuss further management RADHA GARCIA MD January 25, 2025 15:31
--- NOTE | 2025-01-25 15:34 | DVHOP2 ---
Operative Report DATE OF OPERATION: 01/25/25 PROCEDURE: Colonoscopy with cold biopsy polypectomy. PREOPERATIVE INDICATION: The patient is a 34 -year-old male undergoing colonoscopy for GI bleeding and history of bright red blood per rectum POSTOPERATIVE DIAGNOSES: 1. 2 mm benign-appearing sigmoid polyp was seen and removed completely via cold biopsy forceps 2. Trace to 1+ internal hemorrhoids otherwise normal examination up to the cecum and terminal ileum There was no active bleeding but there was moderate amount of old liquid melena in the colon which was aspirated and no other gross lesion was seen PROCEDURE PERFORMED BY: Radha Garcia M.D. SCOPE: Olympus videocolonoscope. ASA CLASS: 3. PREOPERATIVE MEDICATIONS: Mac Dr. Nitish garnica PROCEDURE IN DETAIL: After obtaining an informed consent, the patient was placed on left lateral decubitus position. He was then sedated with the above medications. A rectal examination was performed that was normal. The colonoscope was then passed through the anus into the rectosigmoid and through the descending, transverse, and ascending colon up to the cecum with visualization of the appendiceal orifice, base of the cecum and the ileocecal valve. The colonoscope was then withdrawn. The distal 5-10 cm terminal ileum was normal No masses or colitis or diverticular disease was noted. Patient had old liquid dark stool in the colon In the sigmoid there was a 2 mm polyp that was seen and removed by cold biopsy forceps. On retroflexion and straight on view the patient had trace to 1+ internal hemorrhoids The patient tolerated the procedure well without difficulty. WITHDRAWAL TIME: 7 minutes QUALITY OF THE PREP: [place] Bowel Prep score: 9. COMPLICATIONS : None SPECIMENS: Sigmoid polyp DISPOSITION: Transfer back to the floor Stable PLAN: 1. Repeat colonoscopy base on biopsy result likely in 4-5 years 2. Resume full liquid diet advance as tolerated 3. Outpatient follow up with me in 4-6 weeks to review results and discuss further management RADHA GARCIA MD January 25, 2025 15:34
[2025-01-25] MEDS: ONDANSETRON HCL 4 MG/2 ML VIAL IV ONE (15:42)
[2025-01-25 17:53] LABS: Hemoglobin 7.4 g/dL (13.5-17.5)
[2025-01-25 17:55] LABS: Hematocrit 21.4 % (41.0-53.0)
[2025-01-25] MEDS: LORazepam 2MG/ML-1ML VIAL IV ONE (18:29)
[2025-01-25] MEDS: PANTOPRAZOLE 40mg/50ML NS AE 50 ML IV SCH (18:32)
[2025-01-25] MEDS: VANCOMYCIN HCL 250 MG CAP PO SCH (19:01)
[2025-01-26] VITALS (9 sets, daily range): BP systolic 103–125; BP diastolic 62–75; PULSE 93–127; RESP 16–20; TEMP 98.3–100.3; O2SAT 98–100
[2025-01-26] MEDS: ALPRAZolam 0.5 MG TAB PO PRN (00:04)
[2025-01-26 07:20] LABS: Basophils # (auto) 0.1 10 ^3/uL (0-0.2); Basophils % (auto) 0.5 % (0.0-2.0); Eosinophils # (auto) 0.1 10 ^3/uL (0-0.8); Eosinophils % (auto) 0.8 % (0.0-7.0); Hematocrit 23.2 % (41.0-53.0); Hemoglobin 8.1 g/dL (13.5-17.5); Lymphocytes # (auto) 2.2 10 ^3/uL (0.4-5.4); Lymphocytes % (auto) 21.8 % (10.0-50.0); Mean Corpuscular Hgb Conc. 35.1 g/dL (32.0-36.0); Mean Corpuscular Volume 88.3 fL (80.0-100.0); Monocytes # (auto) 0.7 10 ^3/uL (0-1.3); Monocytes % (auto) 7.3 % (0.0-12.0); Neutrophils % (auto) 69.6 % (37.0-80.0); Nucleated Red Blood Cells % 0.1 %; Platelet Count (auto) 196 10^3/uL (140-450); Red Blood Cells 2.63 10^6/uL (4.5-5.90)
--- NOTE | 2025-01-26 08:35 | DVHPN2 ---
Progress Note - Dictate Date Seen: January 26, 2025 Medical Necessity Reason Pt with a Central, PICC or Fol: No Subjective Patient is awake alert in no acute distress S/P 1 unit PRBC with repeat hemoglobin at 8.1 this morning Patient has not had any further bowel movements since his endoscopy which showed a duodenal bulb ulcer with overlying clot treated with the epinephrine injection He did have some residual melanotic liquid stool in the colon during my colonoscopy but no evidence of active colitis or C diff vital signs Vital Sign Date Time Temp Pulse Resp B/P (MAP) Pulse Ox O2 Delivery O2 Flow Rate FiO2 01/26/25 05:00 98.4 108 20 118/62 (80) 98 98.4 01/25/25 20:00 Room Air* 0 21 Total Intake and Output 01/25/25 01/25/25 01/26/25 15:00 23:00 07:00 Intake Total 250 ml 640 ml Balance 250 ml 640 ml medications Current Medications Medications Dose Ordered Sig/Prakash Route Start Time Stop Time Status Last Admin Dose Admin Acetaminophen/ Hydrocodone Bitart 1 tab Q4HP PRN PO 01/23/25 14:45 Ondansetron HCl 4 mg Q4HP PRN IV 01/23/25 14:45 01/25/25 12:23 4 MG Acetaminophen 650 mg Q6HP PRN PO 01/23/25 14:45 Morphine Sulfate 2 mg Q4HPRN PRN IV 01/23/25 14:45 Sucralfate 1 gm QID@0600,1130,1700,2200 PO 01/24/25 06:00 01/26/25 06:22 1 GM Alprazolam 0.5 mg Q8HPRN PRN PO 01/24/25 17:30 01/26/25 00:04 0.5 MG Sodium Chloride 1,000 ml @ 150 mls/hr Q6H40M IV 01/24/25 17:45 01/26/25 03:05 150 MLS/HR Metronidazole 100 ml @ 100 mls/hr Q8HR IV 01/24/25 22:00 01/26/25 06:18 100 MLS/HR Pantoprazole Sodium 50 ml @ 10 mls/hr Q5H IV 01/25/25 16:00 01/26/25 03:32 10 MLS/HR Vancomycin HCl 500 mg QID PO 01/25/25 18:00 01/26/25 06:22 500 MG Iron Sucrose 110 ml @ 110 mls/hr DAILY@1200 IV 01/26/25 12:00 01/30/25 12:59 UNV objective HEENT pupils are reactive ;Mild pallor Neck is supple CV is S1-S2 regular rate and rhythm Respiratory are clear GI positive bowel sound 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 difficile diarrhea (3) Anemia (4) Duodenal bulb ulcer (5) Coffee ground emesis (6) Melena (7) Acute GI bleeding Prognosis Plan We will try clear liquid diet today Continue IV Protonix drip Start him on IV iron Decrease vancomycin to 125 mg p.o. q.6 hours, he has not no evidence of active C diff colitis Patient is on IV Flagyl which should cover the Shiga toxin positivity Repeat H&H this evening and transfuse 1 unit PRBC if hemoglobin is less than eight Dietary Evaluation Review Comments: 1. Advance diet as medically feasible 2. Continue current POC Expected Outcomes/Goals: To meet >75% estimated needs GI symptoms to resolve Fu 2-3 days Plan discussed with: Patient, Spouse, Other (Nurse Conner) RADHA GROSS MD January 26, 2025 08:35
[2025-01-26] MEDS: IRON SUCROSE COMPLEX 110 ML IV SCH (11:34)
[2025-01-26] MEDS ORDERED: VANCOMYCIN HCL 250 MG CAP PO SCH (12:00)
[2025-01-26] MEDS: VANCOMYCIN HCL 125 MG CAP PO SCH (12:35)
--- NOTE | 2025-01-26 16:37 | DVHPN2 ---
Subjective Patient had EGD and: To be done. EGD shows 1.2 cm duodenal bulb ulcer, colonoscopy showed evidence of internal hemorrhoids. Also patient shiga toxin one and two are positive has been as C diff is positive. 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 Medications Current Medications Medications Dose Ordered Sig/Prakash Route Start Time Stop Time Status Last Admin Dose Admin Acetaminophen/ Hydrocodone Bitart 1 tab Q4HP PRN PO 01/23/25 14:45 Ondansetron HCl 4 mg Q4HP PRN IV 01/23/25 14:45 01/25/25 12:23 4 MG Acetaminophen 650 mg Q6HP PRN PO 01/23/25 14:45 Morphine Sulfate 2 mg Q4HPRN PRN IV 01/23/25 14:45 Sucralfate 1 gm QID@0600,1130,1700,2200 PO 01/24/25 06:00 01/26/25 11:30 1 GM Alprazolam 0.5 mg Q8HPRN PRN PO 01/24/25 17:30 01/26/25 00:04 0.5 MG Sodium Chloride 1,000 ml @ 150 mls/hr Q6H40M IV 01/24/25 17:45 01/26/25 11:32 150 MLS/HR Metronidazole 100 ml @ 100 mls/hr Q8HR IV 01/24/25 22:00 01/26/25 14:13 100 MLS/HR Pantoprazole Sodium 50 ml @ 10 mls/hr Q5H IV 01/25/25 16:00 01/26/25 11:32 10 MLS/HR Iron Sucrose 110 ml @ 110 mls/hr DAILY@1200 IV 01/26/25 12:00 01/30/25 12:59 01/26/25 11:34 110 MLS/HR Vancomycin HCl 125 mg QID PO 01/26/25 12:00 01/26/25 12:35 125 MG Laboratory Results Laboratory Tests 01/23/25 10:28 01/26/25 05:33 Urinalysis Test 01/24/25 06:55 Urine Color Light-yellow (Yellow) Urine Clarity Clear (Clear) Urine pH 6.0 (5.0-9.0) Urine Specific [place] 1.021 (1.001-1.035) Urine Protein Negative (Negative) Urine Ketones 2+ (Negative) H Urine Blood Negative /uL (Negative) Urine Nitrite Negative (Negative) Urine Bilirubin Negative (Negative) Urine Urobilinogen Normal mg/dL (Negative) Urine Leukocyte Esterase Negative /uL (Negative) Urine RBC 1 /hpf (0 - 3) Urine Microscopic WBC 3 /HPF (0-3) Urine Squamous Epithelial Cells None seen /hpf (<5) Urine Bacteria None seen /hpf (None Seen) Urine Mucus Few (None Seen) Urine Glucose Normal mg/dL (Normal) Microbiology Microbiology Date/Time Source Procedure Growth Status 01/24/25 03:50 Stool Stool Culture - Preliminary Resulted 01/24/25 03:50 Stool Shiga Toxin I & II - Final Resulted Assessment/Plan Assessment/Plan 34-year-old male with a known history of anxiety and depression currently not on any medications, chronic alcoholism presented to the hospital with coffee- ground emesis along with the diarrhea and black stools found to have 1. Shiga toxin one and two positive 2. Status post EGD and colonoscopy shows evidence of duodenal bulb ulcer and internal hemorrhoids 3. Diarrhea ruled in his C diff, currently diarrhea resolved 4. History of chronic alcoholism, quit 10 years ago 5. Chronic marijuana use 6. Acute anemia secondary to GI bleed -continue Protonix, clear liquid diet as tolerated, continue IV antibiotics- Contact isolation, GI follow up for discharge plan Plan discussed with: Patient My Orders Orders - MONICA BONNRE MD Procedure Category Date Status Time Complete Blood Count LAB 01/27/25 Verified 05:00 Comprehensive LAB 01/27/25 Verified Metabolic Panel 05:00 Communication Order ORDERS 01/26/25 Transmitted 14:49 Date of Service: January 26, 2025 Billing Provider: MONICA BONNER MD Common Visit Codes: NOT BILLABLE MONICA BONNER MD January 26, 2025 16:37
[2025-01-26 18:14] LABS: Eosinophils # (auto) 0.1 10 ^3/uL (0-0.8); Eosinophils % (auto) 1.6 % (0.0-7.0); Hemoglobin 8.2 g/dL (13.5-17.5); Lymphocytes # (auto) 1.9 10 ^3/uL (0.4-5.4); Mean Corpuscular Hemoglobin 30.2 pg (28.0-32.0); Monocytes # (auto) 0.6 10 ^3/uL (0-1.3); Neutrophils # (auto) 6.1 10 ^3/uL (1.6-8.6); Nucleated Red Blood Cells % 0.1 %; White Blood Cell 8.7 10^3/uL (4.4-10.8)
[2025-01-26 18:15] LABS: Basophils # (auto) 0.1 10 ^3/uL (0-0.2); Basophils % (auto) 0.8 % (0.0-2.0); Hematocrit 23.8 % (41.0-53.0); Lymphocytes % (auto) 21.3 % (10.0-50.0); Mean Corpuscular Hgb Conc. 34.3 g/dL (32.0-36.0); Mean Corpuscular Volume 88.1 fL (80.0-100.0); Monocytes % (auto) 6.7 % (0.0-12.0); Neutrophils % (auto) 69.6 % (37.0-80.0); Platelet Count (auto) 219 10^3/uL (140-450); Red Blood Cells 2.71 10^6/uL (4.5-5.90); Red Cell Distribution Width 13.2 % (11.8-14.3)
[2025-01-27] VITALS (10 sets, daily range): BP systolic 109–137; BP diastolic 55–80; PULSE 109–125; RESP 18–20; TEMP 98.4–99.9; O2SAT 94–99
[2025-01-27 07:41] LABS: Alanine Aminotransferase 15 U/L (7-40); Anion Gap 9 (5-15); Carbon Dioxide 24 mmol/L (20-31); Sodium 141 mmol/L (136-145)
[2025-01-27 07:42] LABS: Glucose 81 mg/dL (74-106)
[2025-01-27 07:48] LABS: Albumin 3.1 g/dL (3.2-4.8); Alkaline Phosphatase 32 U/L (46-116); Aspartate Aminotransferase 11 U/L (13-40); BUN/Creatinine Ratio 8.6 (10.0-20.0); Bilirubin, Total 0.3 mg/dL (0.2-1.0); Blood Urea Nitrogen < 5 mg/dL (9-23); Calcium 8.1 mg/dL (8.7-10.4); Chloride 108 mmol/L (98-107); Potassium 3.3 mmol/L (3.5-5.1); Total Protein 4.5 g/dL (5.7-8.2)
[2025-01-27 09:06] LABS: Basophils # (auto) 0 10 ^3/uL (0-0.2); Eosinophils # (auto) 0.1 10 ^3/uL (0-0.8); Lymphocytes # (auto) 1.3 10 ^3/uL (0.4-5.4); Mean Corpuscular Hgb Conc. 33.9 g/dL (32.0-36.0); White Blood Cell 7.9 10^3/uL (4.4-10.8)
[2025-01-27 09:08] LABS: Basophils % (auto) 0.5 % (0.0-2.0); Eosinophils % (auto) 1.5 % (0.0-7.0); Hematocrit 19.8 % (41.0-53.0); Lymphocytes % (auto) 16.5 % (10.0-50.0); Mean Corpuscular Hemoglobin 30.3 pg (28.0-32.0); Mean Corpuscular Volume 89.4 fL (80.0-100.0); Monocytes # (auto) 0.5 10 ^3/uL (0-1.3); Neutrophils # (auto) 5.9 10 ^3/uL (1.6-8.6); Neutrophils % (auto) 74.5 % (37.0-80.0); Nucleated Red Blood Cells % 0.1 %; Platelet Count (auto) 217 10^3/uL (140-450); Red Blood Cells 2.22 10^6/uL (4.5-5.90); Red Cell Distribution Width 13.1 % (11.8-14.3)
[2025-01-27 09:13] LABS: Hemoglobin 6.7 g/dL (13.5-17.5)
[2025-01-27] MEDS: POTASSIUM EFFERVESENT TAB 25 MEQ PO ONE (09:42)
--- NOTE | 2025-01-27 17:50 | DVHPN2 ---
Subjective Patient currently tolerating clear liquid diet, we will transfuse one more unit of packed RBC. Patient denies any blood in the stools. 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 Medications Current Medications Medications Dose Ordered Sig/Prakash Route Start Time Stop Time Status Last Admin Dose Admin Acetaminophen/ Hydrocodone Bitart 1 tab Q4HP PRN PO 01/23/25 14:45 Ondansetron HCl 4 mg Q4HP PRN IV 01/23/25 14:45 01/25/25 12:23 4 MG Acetaminophen 650 mg Q6HP PRN PO 01/23/25 14:45 Morphine Sulfate 2 mg Q4HPRN PRN IV 01/23/25 14:45 Sucralfate 1 gm QID@0600,1130,1700,2200 PO 01/24/25 06:00 01/27/25 17:05 1 GM Alprazolam 0.5 mg Q8HPRN PRN PO 01/24/25 17:30 01/27/25 09:50 0.5 MG Sodium Chloride 1,000 ml @ 150 mls/hr Q6H40M IV 01/24/25 17:45 01/27/25 13:01 150 MLS/HR Metronidazole 100 ml @ 100 mls/hr Q8HR IV 01/24/25 22:00 01/27/25 13:58 100 MLS/HR Pantoprazole Sodium 50 ml @ 10 mls/hr Q5H IV 01/25/25 16:00 01/27/25 13:02 10 MLS/HR Iron Sucrose 110 ml @ 110 mls/hr DAILY@1200 IV 01/26/25 12:00 01/30/25 12:59 01/27/25 11:39 110 MLS/HR Vancomycin HCl 125 mg QID PO 01/26/25 12:00 01/27/25 11:39 125 MG Laboratory Results Laboratory Tests 01/27/25 05:42 01/27/25 08:57 Chemistry Test 01/27/25 05:42 Albumin 3.1 g/dL (3.2-4.8) L Calcium Level 8.1 mg/dL (8.7-10.4) L Total Protein 4.5 g/dL (5.7-8.2) L LFT Test 01/27/25 05:42 Alanine Aminotransferase (ALT) 15 U/L (7-40) Alkaline Phosphatase 32 U/L (46-116) L Aspartate Amino Transferase (AST) 11 U/L (13-40) L Total Bilirubin 0.3 mg/dL (0.2-1.0) Urinalysis Test 01/24/25 06:55 Urine Color Light-yellow (Yellow) Urine Clarity Clear (Clear) Urine pH 6.0 (5.0-9.0) Urine Specific [place] 1.021 (1.001-1.035) Urine Protein Negative (Negative) Urine Ketones 2+ (Negative) H Urine Blood Negative /uL (Negative) Urine Nitrite Negative (Negative) Urine Bilirubin Negative (Negative) Urine Urobilinogen Normal mg/dL (Negative) Urine Leukocyte Esterase Negative /uL (Negative) Urine RBC 1 /hpf (0 - 3) Urine Microscopic WBC 3 /HPF (0-3) Urine Squamous Epithelial Cells None seen /hpf (<5) Urine Bacteria None seen /hpf (None Seen) Urine Mucus Few (None Seen) Urine Glucose Normal mg/dL (Normal) Microbiology Microbiology Date/Time Source Procedure Growth Status 01/24/25 03:50 Stool Stool Culture - Final Complete 01/24/25 03:50 Stool Shiga Toxin I & II - Final Complete Assessment/Plan Assessment/Plan 34-year-old male with a known history of anxiety and depression currently not on any medications, chronic alcoholism presented to the hospital with coffee- ground emesis along with the diarrhea and black stools found to have 1. Shiga toxin one and two positive 2. Status post EGD and colonoscopy shows evidence of duodenal bulb ulcer and internal hemorrhoids 3. Diarrhea ruled in his C diff, currently diarrhea resolved 4. History of chronic alcoholism, quit 10 years ago 5. Chronic marijuana use 6. Acute anemia secondary to GI bleed -continue Protonix, clear liquid diet as tolerated, continue IV antibiotics- Contact isolation, GI follow up for discharge plan -transfuse 1 unit of packed RBC. Plan discussed with: Patient Date of Service: January 27, 2025 Billing Provider: MONICA BONNER MD Common Visit Codes: NOT BILLABLE MONICA BONNER MD January 27, 2025 17:50
[2025-01-27 19:16] LABS: Hemoglobin 8.4 g/dL (13.5-17.5)
--- NOTE | 2025-01-27 22:14 | DVHPN2 ---
Progress Note - Dictate Date Seen: January 27, 2025 Medical Necessity Reason Pt with a Central, PICC or Fol: No Subjective Patient is awake alert in no acute distress Patient's hemoglobin dropped down to 6.7 this morning and I ordered one more unit PRBC Repeat hemoglobin this evening is up to 8.4 Patient denied any further rectal bleeding he, he did have two dark greenish loose bowel movements since yesterday Upper endoscopy showed a duodenal bulb ulcer with overlying clot treated with the epinephrine injection He did have some residual melanotic liquid stool in the colon during my colonoscopy but no evidence of active colitis or C diff vital signs Vital Sign Date Time Temp Pulse Resp B/P (MAP) Pulse Ox O2 Delivery O2 Flow Rate FiO2 01/27/25 21:00 99.9 109 19 128/80 (96) 99 99.9 01/27/25 08:00 Room Air* 0 21 Total Intake and Output 01/26/25 01/26/25 01/27/25 15:00 23:00 07:00 Intake Total 210 ml 1950 ml 240 ml Balance 210 ml 1950 ml 240 ml medications Current Medications Medications Dose Ordered Sig/Prakash Route Start Time Stop Time Status Last Admin Dose Admin Acetaminophen/ Hydrocodone Bitart 1 tab Q4HP PRN PO 01/23/25 14:45 Ondansetron HCl 4 mg Q4HP PRN IV 01/23/25 14:45 01/25/25 12:23 4 MG Acetaminophen 650 mg Q6HP PRN PO 01/23/25 14:45 Morphine Sulfate 2 mg Q4HPRN PRN IV 01/23/25 14:45 Sucralfate 1 gm QID@0600,1130,1700,2200 PO 01/24/25 06:00 01/27/25 21:47 1 GM Alprazolam 0.5 mg Q8HPRN PRN PO 01/24/25 17:30 01/27/25 09:50 0.5 MG Sodium Chloride 1,000 ml @ 150 mls/hr Q6H40M IV 01/24/25 17:45 01/27/25 19:25 150 MLS/HR Metronidazole 100 ml @ 100 mls/hr Q8HR IV 01/24/25 22:00 01/27/25 21:47 100 MLS/HR Pantoprazole Sodium 50 ml @ 10 mls/hr Q5H IV 01/25/25 16:00 01/27/25 17:59 10 MLS/HR Iron Sucrose 110 ml @ 110 mls/hr DAILY@1200 IV 01/26/25 12:00 01/30/25 12:59 01/27/25 11:39 110 MLS/HR Vancomycin HCl 125 mg QID PO 01/26/25 12:00 01/27/25 21:47 125 MG objective HEENT pupils are reactive ;Mild pallor Neck is supple CV is S1-S2 regular rate and rhythm Respiratory are clear GI positive bowel sound 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 difficile diarrhea (4) Anemia (5) Coffee ground emesis (6) Gastroenteritis (7) Alcohol intoxication (8) Melena Prognosis Plan Carafate 1 g p.o. 4 times a day Protonix 40 mg IV q.12 hours Continue clear liquid diet Monitor H&H every 12 hours Once the patient H&H is stabilized then I will advance him to a full liquid diet DC aspirin NSAIDs smoking alcohol Dietary Evaluation Review Comments: 1. Advance diet as medically feasible 2. Continue current POC Expected Outcomes/Goals: To meet >75% estimated needs GI symptoms to resolve Fu 2-3 days Plan discussed with: Patient, Other (Nurse) RADHA GROSS MD January 27, 2025 22:14
[2025-01-28] VITALS (8 sets, daily range): BP systolic 115–131; BP diastolic 65–80; PULSE 103–127; RESP 17–20; TEMP 98.1–99.9; O2SAT 97–99
[2025-01-28 06:03] LABS: Basophils # (auto) 0.1 10 ^3/uL (0-0.2); Basophils % (auto) 0.7 % (0.0-2.0); Eosinophils # (auto) 0.2 10 ^3/uL (0-0.8); Eosinophils % (auto) 2.5 % (0.0-7.0); Hematocrit 23.3 % (41.0-53.0); Lymphocytes # (auto) 1.8 10 ^3/uL (0.4-5.4); Lymphocytes % (auto) 23.2 % (10.0-50.0); Mean Corpuscular Hemoglobin 31.1 pg (28.0-32.0); Mean Corpuscular Hgb Conc. 34.3 g/dL (32.0-36.0); Mean Corpuscular Volume 90.6 fL (80.0-100.0); Monocytes # (auto) 0.6 10 ^3/uL (0-1.3); Neutrophils # (auto) 5.1 10 ^3/uL (1.6-8.6); Neutrophils % (auto) 65.6 % (37.0-80.0); Nucleated Red Blood Cells % 0.1 %; Platelet Count (auto) 209 10^3/uL (140-450); Red Blood Cells 2.57 10^6/uL (4.5-5.90); Red Cell Distribution Width 13.6 % (11.8-14.3); White Blood Cell 7.7 10^3/uL (4.4-10.8)
[2025-01-28 06:11] LABS: Anion Gap 9 (5-15); Carbon Dioxide 25 mmol/L (20-31); Chloride 107 mmol/L (98-107); Sodium 141 mmol/L (136-145)
[2025-01-28 06:17] LABS: Glucose 91 mg/dL (74-106); Potassium 3.3 mmol/L (3.5-5.1)
[2025-01-28 06:18] LABS: BUN/Creatinine Ratio 7.8 (10.0-20.0); Blood Urea Nitrogen < 5 mg/dL (9-23); Calcium 8.6 mg/dL (8.7-10.4)
[2025-01-28] MEDS: LORazepam 0.5 MG TAB PO PRN ×2 (06:37→12:48)
[2025-01-28] MEDS: LIDOCAINE VISCOUS 2% 15ML UD ONE (07:25)
--- NOTE | 2025-01-28 15:55 | DVHPN2 ---
Subjective Patient currently tolerating clear liquid diet, we will transfuse one more unit of packed RBC. Patient denies any blood in the stools. 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 Medications Current Medications Medications Dose Ordered Sig/Prakash Route Start Time Stop Time Status Last Admin Dose Admin Acetaminophen/ Hydrocodone Bitart 1 tab Q4HP PRN PO 01/23/25 14:45 Ondansetron HCl 4 mg Q4HP PRN IV 01/23/25 14:45 01/25/25 12:23 4 MG Acetaminophen 650 mg Q6HP PRN PO 01/23/25 14:45 Morphine Sulfate 2 mg Q4HPRN PRN IV 01/23/25 14:45 Sucralfate 1 gm QID@0600,1130,1700,2200 PO 01/24/25 06:00 01/28/25 10:58 1 GM Sodium Chloride 1,000 ml @ 150 mls/hr Q6H40M IV 01/24/25 17:45 01/28/25 15:17 150 MLS/HR Metronidazole 100 ml @ 100 mls/hr Q8HR IV 01/24/25 22:00 01/28/25 14:57 100 MLS/HR Pantoprazole Sodium 50 ml @ 10 mls/hr Q5H IV 01/25/25 16:00 01/28/25 14:57 10 MLS/HR Iron Sucrose 110 ml @ 110 mls/hr DAILY@1200 IV 01/26/25 12:00 01/30/25 12:59 01/28/25 10:58 110 MLS/HR Vancomycin HCl 125 mg QID PO 01/26/25 12:00 01/28/25 10:58 125 MG Lorazepam 0.5 mg Q6HPRN PRN PO 01/28/25 11:30 01/28/25 12:48 0.5 MG Laboratory Results Laboratory Tests 01/28/25 05:15 Chemistry Test 01/28/25 05:15 Calcium Level 8.6 mg/dL (8.7-10.4) L Urinalysis Test 01/24/25 06:55 Urine Color Light-yellow (Yellow) Urine Clarity Clear (Clear) Urine pH 6.0 (5.0-9.0) Urine Specific [place] 1.021 (1.001-1.035) Urine Protein Negative (Negative) Urine Ketones 2+ (Negative) H Urine Blood Negative /uL (Negative) Urine Nitrite Negative (Negative) Urine Bilirubin Negative (Negative) Urine Urobilinogen Normal mg/dL (Negative) Urine Leukocyte Esterase Negative /uL (Negative) Urine RBC 1 /hpf (0 - 3) Urine Microscopic WBC 3 /HPF (0-3) Urine Squamous Epithelial Cells None seen /hpf (<5) Urine Bacteria None seen /hpf (None Seen) Urine Mucus Few (None Seen) Urine Glucose Normal mg/dL (Normal) Microbiology Microbiology Date/Time Source Procedure Growth Status 01/24/25 03:50 Stool Stool Culture - Final Complete 01/24/25 03:50 Stool Shiga Toxin I & II - Final Complete Assessment/Plan Assessment/Plan 34-year-old male with a known history of anxiety and depression currently not on any medications, chronic alcoholism presented to the hospital with coffee- ground emesis along with the diarrhea and black stools found to have 1. Shiga toxin one and two positive 2. Status post EGD and colonoscopy shows evidence of duodenal bulb ulcer and internal hemorrhoids 3. Diarrhea ruled in his C diff, currently diarrhea resolved 4. History of chronic alcoholism, quit 10 years ago 5. Chronic marijuana use 6. Acute anemia secondary to GI bleed -continue Protonix, clear liquid diet as tolerated, advance to full liquid diet continue IV antibiotics- Contact isolation, GI follow up for discharge plan Plan discussed with: Patient My Orders Orders - MONICA BONNER MD Procedure Category Date Status Time Lorazepam Tablet PHA 01/28/25 In Process (Ativan Tablet) 11:30 Date of Service: January 28, 2025 Billing Provider: MONICA BONNER MD Common Visit Codes: NOT BILLABLE MONICA BONNER MD January 28, 2025 15:55
--- NOTE | 2025-01-28 20:35 | DVHPN2 ---
Progress Note - Dictate Date Seen: January 28, 2025 Medical Necessity Reason Pt with a Central, PICC or Fol: No Subjective Patient is awake alert in no acute distress Patient's hemoglobin stable at 8.0 Patient denied any further rectal bleeding he, he did have two dark greenish loose bowel movements since yesterday Upper endoscopy showed a duodenal bulb ulcer with overlying clot treated with the epinephrine injection He did have some residual melanotic liquid stool in the colon during my colonoscopy but no evidence of active colitis or C diff vital signs Vital Sign Date Time Temp Pulse Resp B/P (MAP) Pulse Ox O2 Delivery O2 Flow Rate FiO2 01/28/25 17:00 98.3 127 18 118/80 (93) 97 98.3 01/28/25 08:05 Room Air* 0 21 Total Intake and Output 01/27/25 01/27/25 01/28/25 15:00 23:00 07:00 Intake Total 200 ml 2885 ml 700 ml Output Total 600 ml Balance 200 ml 2285 ml 700 ml medications Current Medications Medications Dose Ordered Sig/Prakash Route Start Time Stop Time Status Last Admin Dose Admin Acetaminophen/ Hydrocodone Bitart 1 tab Q4HP PRN PO 01/23/25 14:45 Ondansetron HCl 4 mg Q4HP PRN IV 01/23/25 14:45 01/25/25 12:23 4 MG Acetaminophen 650 mg Q6HP PRN PO 01/23/25 14:45 Morphine Sulfate 2 mg Q4HPRN PRN IV 01/23/25 14:45 Sucralfate 1 gm QID@0600,1130,1700,2200 PO 01/24/25 06:00 01/28/25 17:12 1 GM Sodium Chloride 1,000 ml @ 150 mls/hr Q6H40M IV 01/24/25 17:45 01/28/25 15:17 150 MLS/HR Metronidazole 100 ml @ 100 mls/hr Q8HR IV 01/24/25 22:00 01/28/25 14:57 100 MLS/HR Pantoprazole Sodium 50 ml @ 10 mls/hr Q5H IV 01/25/25 16:00 01/28/25 14:57 10 MLS/HR Iron Sucrose 110 ml @ 110 mls/hr DAILY@1200 IV 01/26/25 12:00 01/30/25 12:59 01/28/25 10:58 110 MLS/HR Vancomycin HCl 125 mg QID PO 01/26/25 12:00 01/28/25 17:12 125 MG Lorazepam 0.5 mg Q6HPRN PRN PO 01/28/25 11:30 01/28/25 12:48 0.5 MG objective HEENT pupils are reactive ;Mild pallor Neck is supple CV is S1-S2 regular rate and rhythm Respiratory are clear GI positive bowel sound 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 difficile diarrhea (4) Anemia (5) Coffee ground emesis (6) Gastroenteritis (7) Alcohol intoxication (8) Melena Prognosis Plan Continue IV Protonix drip Advance to full liquid diet Repeat labs in a.m. Transfuse one more unit PRBC if hemoglobin drops below 7.5 I will follow up patient with you and will be standing by for repeat endoscopy if he has signs of active bleeding Dietary Evaluation Review Comments: 1. Advance diet as medically feasible 2. Continue current POC Expected Outcomes/Goals: To meet >75% estimated needs GI symptoms to resolve Fu 2-3 days Plan discussed with: Patient RADHA GROSS MD January 28, 2025 20:35
[2025-01-29] VITALS (9 sets, daily range): BP systolic 99–136; BP diastolic 58–79; PULSE 108–138; RESP 16–20; TEMP 97.9–98.9; O2SAT 96–98
[2025-01-29 08:13] LABS: Basophils # (auto) 0 10 ^3/uL (0-0.2); Monocytes # (auto) 0.5 10 ^3/uL (0-1.3); Platelet Count (auto) 254 10^3/uL (140-450); Red Cell Distribution Width 14.7 % (11.8-14.3); Sodium 141 mmol/L (136-145)
[2025-01-29 08:14] LABS: Anion Gap 10 (5-15); Basophils % (auto) 0.4 % (0.0-2.0); Calcium 8.9 mg/dL (8.7-10.4); Carbon Dioxide 24 mmol/L (20-31); Chloride 107 mmol/L (98-107); Eosinophils # (auto) 0.2 10 ^3/uL (0-0.8); Hematocrit 24.6 % (41.0-53.0); Hemoglobin 8.2 g/dL (13.5-17.5); Lymphocytes # (auto) 1.2 10 ^3/uL (0.4-5.4); Lymphocytes % (auto) 15.3 % (10.0-50.0); Mean Corpuscular Hgb Conc. 33.1 g/dL (32.0-36.0); Mean Corpuscular Volume 93.5 fL (80.0-100.0); Monocytes % (auto) 6.3 % (0.0-12.0); Neutrophils # (auto) 6.1 10 ^3/uL (1.6-8.6); Nucleated Red Blood Cells % 0.1 %; Potassium 2.9 mmol/L (3.5-5.1); Red Blood Cells 2.63 10^6/uL (4.5-5.90)
[2025-01-29 08:19] LABS: BUN/Creatinine Ratio 7.2 (10.0-20.0); Blood Urea Nitrogen < 5 mg/dL (9-23); Glucose 95 mg/dL (74-106)
[2025-01-29] MEDS: POTASSIUM EFFERVESENT TAB 25 MEQ PO ONE (13:58)
[2025-01-29 14:02] LABS: Magnesium 1.9 mg/dL (1.6-2.6)
--- NOTE | 2025-01-29 15:12 | DVHPN2 ---
Subjective Patient currently tolerating full liquid diet, patient denies any bloody bowel movements. Patient's heart rate goes up to 150s to 160 upon minimal exertion. 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 Medications Current Medications Medications Dose Ordered Sig/Prakash Route Start Time Stop Time Status Last Admin Dose Admin Acetaminophen/ Hydrocodone Bitart 1 tab Q4HP PRN PO 01/23/25 14:45 Ondansetron HCl 4 mg Q4HP PRN IV 01/23/25 14:45 01/25/25 12:23 4 MG Acetaminophen 650 mg Q6HP PRN PO 01/23/25 14:45 Morphine Sulfate 2 mg Q4HPRN PRN IV 01/23/25 14:45 Sucralfate 1 gm QID@0600,1130,1700,2200 PO 01/24/25 06:00 01/29/25 12:22 1 GM Metronidazole 100 ml @ 100 mls/hr Q8HR IV 01/24/25 22:00 01/29/25 13:59 100 MLS/HR Iron Sucrose 110 ml @ 110 mls/hr DAILY@1200 IV 01/26/25 12:00 01/30/25 12:59 01/29/25 12:24 110 MLS/HR Vancomycin HCl 125 mg QID PO 01/26/25 12:00 01/29/25 12:23 125 MG Lorazepam 0.5 mg Q6HPRN PRN PO 01/28/25 11:30 01/29/25 07:36 0.5 MG Pantoprazole Sodium 40 mg DAILY IV 01/30/25 10:00 UNV Laboratory Results Laboratory Tests 01/29/25 07:48 Chemistry Test 01/29/25 07:48 Calcium Level 8.9 mg/dL (8.7-10.4) Magnesium Level 1.9 mg/dL (1.6-2.6) Lipid panel Test 01/29/25 07:48 Cholesterol Level 98 mg/dL (< 200) HDL Cholesterol 34 mg/dL (40-59) L Triglycerides Level 74 mg/dL (< 150) Cardiac Markers Test 01/29/25 07:48 B-Type Natriuretic Peptide 6.69 pg/mL (0-100) HgA1c, TSH Test 01/29/25 07:48 Thyroid Stimulating Hormone (TSH) 0.89 uIU/mL (0.55-4.78) Urinalysis Test 01/24/25 06:55 Urine Color Light-yellow (Yellow) Urine Clarity Clear (Clear) Urine pH 6.0 (5.0-9.0) Urine Specific [place] 1.021 (1.001-1.035) Urine Protein Negative (Negative) Urine Ketones 2+ (Negative) H Urine Blood Negative /uL (Negative) Urine Nitrite Negative (Negative) Urine Bilirubin Negative (Negative) Urine Urobilinogen Normal mg/dL (Negative) Urine Leukocyte Esterase Negative /uL (Negative) Urine RBC 1 /hpf (0 - 3) Urine Microscopic WBC 3 /HPF (0-3) Urine Squamous Epithelial Cells None seen /hpf (<5) Urine Bacteria None seen /hpf (None Seen) Urine Mucus Few (None Seen) Urine Glucose Normal mg/dL (Normal) Microbiology Microbiology Date/Time Source Procedure Growth Status 01/24/25 03:50 Stool Stool Culture - Final Complete 01/24/25 03:50 Stool Shiga Toxin I & II - Final Complete Assessment/Plan Assessment/Plan 34-year-old male with a known history of anxiety and depression currently not on any medications, chronic alcoholism presented to the hospital with coffee- ground emesis along with the diarrhea and black stools found to have 1. Shiga toxin one and two positive 2. Status post EGD and colonoscopy shows evidence of duodenal bulb ulcer and internal hemorrhoids 3. Diarrhea ruled in his C diff, currently diarrhea resolved 4. History of chronic alcoholism, quit 10 years ago 5. Chronic marijuana use 6. Acute anemia secondary to GI bleed 7. Sinus tachycardia -2D echo, cardiology consultation. We will consider adding beta mike. -continue Protonix, clear liquid diet as tolerated, advance to full liquid diet continue IV antibiotics- Contact isolation, GI follow up for discharge plan Plan discussed with: Patient My Orders Orders - MONICA BONNER MD Procedure Category Date Status Time * Cardiology Consult CONS 01/29/25 Transmitted 12:36 Pantoprazole PHA 01/30/25 Logged (Protonix) 10:00 Date of Service: January 29, 2025 Billing Provider: MONICA BONNER MD Common Visit Codes: NOT BILLABLE MONICA BONNER MD January 29, 2025 15:12
--- NOTE | 2025-01-29 18:18 | DVHINCON2 ---
Date Seen: January 29, 2025 Referring Physician MD Ulisses Reason for Consultation High HR History of Present Illness This is a 34-year-old male with past medical history of anxiety, depression and previous alcohol use disorder came to the hospital 2 days back due to abdominal pain, bloody vomiting and per rectal bleeding. He has a underwent EGD (found to have duodenal ulcer, 2 cm), on colonoscopy found to have trace internal hemorrhoids with 2 benign sigmoidal polyp. Cardiology consulted due to increased heart rate specifically while patient is walking. Per patient, he had an episode of tachycardia 10 years back, had admitted at hospital for 1 days, and was discharged with metoprolol for few days, but since then he hadn't have any other episode of tachycardia. PMHx: anxiety, depression and previous alcohol PSHx: Not significant Family history: Noncontributory Social history: Patient has history of alcohol use disorder (10 years back), denies smoking or any other drug use Home medication: Does not take any medicine Allergic history: No known allergy Patient seen and examined at the bedside. Patient is complaining of palpitation. Otherwise denies chest pain, shortness of breaths, nausea, vomiting, dizziness, or blurry vision. Past Medical History Per H&P Past Surgical History Per H&P Family History: Patient reports no known family medical history. Family History Per H&P Social History Per H&P Allergies: Coded Allergies: NO KNOWN ALLERGIES (Unverified , 06/05/15) Home Meds No Active Prescriptions or Reported Meds Current Medications Current Medications Medications (Trade) Dose Ordered Sig/Prakash Route PRN Reason Start Time Stop Time Status Last Admin Pantoprazole Sodium (Protonix) 40 mg DAILY IV 01/30/25 10:00 UNV Review of Systems Per H&P Vital Signs Vital Signs Date Time Temp Pulse Resp B/P (MAP) Pulse Ox O2 Delivery O2 Flow Rate FiO2 01/29/25 17:00 98.9 122 16 136/79 (98) 96 98.9 01/29/25 07:35 Room Air* 0 21 Physical Exam General Appearance: Alert, Oriented X3, Cooperative, No acute distress HEENT: Atraumatic, PERRLA, EOMI, mucous membranes are pale Respiratory: Clear to auscultation, Normal air movement Cardiovascular: Regular rate, Normal S1, Normal S2, No murmurs, no chest wall tenderness Abdominal: Normal bowel sounds, Soft, No tenderness, No hepatospenomegaly, No masses Extremities: No clubbing, No cyanosis, No edema, Normal pulses, No tenderness/swelling Skin: Pale skin Neuro: Normal gait, Normal speech, Strength at 5/5 X4 ext, Normal tone, Sensation intact, Cranial nerves 3-12 NL, Reflexes 2+ Psych/Mental Status: Mental status NL, Mood NL Labs/Diagnostic Data Labs Test 01/29/25 07:48 01/27/25 05:42 01/24/25 06:55 01/24/25 03:50 Range/Units White Blood Count 8.0 4.4-10.8 10^3/uL Red Blood Count 2.63 L 4.5-5.90 10^6/uL Hemoglobin 8.2 L 13.5-17.5 g/dL Hematocrit 24.6 L 41.0-53.0 % Mean Corpuscular Volume 93.5 80.0-100.0 fL Mean Corpuscular Hemoglobin 31.0 28.0-32.0 pg Mean Corpuscular Hemoglobin Concent 33.1 32.0-36.0 g/dL Red Cell Distribution Width 14.7 H 11.8-14.3 % Platelet Count 254 140-450 10^3/uL Mean Platelet Volume 8.5 6.9-10.8 fL Neutrophils (%) (Auto) 76.0 37.0-80.0 % Lymphocytes (%) (Auto) 15.3 10.0-50.0 % Monocytes (%) (Auto) 6.3 0.0-12.0 % Eosinophils (%) (Auto) 2.0 0.0-7.0 % Basophils (%) (Auto) 0.4 0.0-2.0 % Neutrophils # (Auto) 6.1 1.6-8.6 10 ^3/uL Lymphocytes # (Auto) 1.2 0.4-5.4 10 ^3/uL Monocytes # (Auto) 0.5 0-1.3 10 ^3/uL Eosinophils # (Auto) 0.2 0-0.8 10 ^3/uL Basophils # (Auto) 0 0-0.2 10 ^3/uL Nucleated Red Blood Cells 0.1 % Sodium Level 141 136-145 mmol/L Potassium Level 2.9 L 3.5-5.1 mmol/L Chloride Level 107 98-107 mmol/L Carbon Dioxide Level 24 20-31 mmol/L Anion Gap 10 5-15 Blood Urea Nitrogen < 5 L 9-23 mg/dL Creatinine 0.69 L 0.700-1.30 mg/dL Glomerular Filtration Rate Calc 125 >90 mL/min BUN/Creatinine Ratio 7.2 L 10.0-20.0 Serum Glucose 95 74-106 mg/dL Calcium Level 8.9 8.7-10.4 mg/dL Magnesium Level 1.9 1.6-2.6 mg/dL Troponin I High Sensitivity 6 </=54 ng/L B-Type Natriuretic Peptide 6.69 0-100 pg/mL Triglycerides Level 74 < 150 mg/dL Cholesterol Level 98 < 200 mg/dL LDL Cholesterol 51 < 100 mg/dL HDL Cholesterol 34 L 40-59 mg/dL Thyroid Stimulating Hormone (TSH) 0.89 0.55-4.78 uIU/mL Total Bilirubin 0.3 0.2-1.0 mg/dL Aspartate Amino Transferase (AST) 11 L 13-40 U/L Alanine Aminotransferase (ALT) 15 7-40 U/L Alkaline Phosphatase 32 L 46-116 U/L Total Protein 4.5 L 5.7-8.2 g/dL Albumin 3.1 L 3.2-4.8 g/dL Urine Color Light-yellow Yellow Urine Clarity Clear Clear Urine pH 6.0 5.0-9.0 Urine Specific [place] 1.021 1.001-1.035 Urine Protein Negative Negative Urine Ketones 2+ H Negative Urine Blood Negative Negative /uL Urine Nitrite Negative Negative Urine Bilirubin Negative Negative Urine Urobilinogen Normal Negative mg/dL Urine Leukocyte Esterase Negative Negative /uL Urine RBC 1 0 - 3 /hpf Urine Microscopic WBC 3 0-3 /HPF Urine Squamous Epithelial Cells None seen <5 /hpf Urine Bacteria None seen None Seen /hpf Urine Mucus Few None Seen Urine Glucose Normal Normal mg/dL Stool Occult Blood Positive Negative Stool Occult Blood Sample #3 Negative Stool for White Cells None seen Test 01/23/25 10:28 Range/Units Prothrombin Time 11.4 9.3-11.8 sec Prothrombin Time INR 1.08 0.9-1.15 Activated Partial Thromboplast Time 25.9 24.5-34.5 SEC Lactic Acid Level 1.6 0.4-2.0 mmol/L Lipase 43 12-53 U/L Microbiology Date/Time Source Procedure Growth Status 01/24/25 03:50 Stool Stool Culture - Final Complete 01/24/25 03:50 Stool Shiga Toxin I & II - Final Complete Assessment Compensatory sinus tachycardia due to severe anemia Severe anemia, likely due due to bleeding Upper GI bleeding due to duodenal ulcer Lower GI bleeding due to internal hemorrhoids/gastroenteritis (due to C diff and shiga toxin)/polyp History of alcohol use disorder Anxiety/depression * EKGs shows sinus tachycardia with no significant ST or T-wave changes * Trop I and BNP are within normal limits Plan/Recommendation (Case discussed with Dr. Sherwood) * Considering patient's current clinical status, active bleeding, no further cardiology workup required at the moment * Discharge plan: Upon discharge if the patient has tachycardia persisted we recommend to follow up with the Cardiology on outpatient basis * Keep K above 4, and Mag above 2 * Rest of plan, per primary team Thank you for allowing us to participate in this patient's care. Please call if you have any questions or concerns. Plan discussed with: Patient, Other (RN) NYHA Physical activity limitations: NA Date of Service: January 29, 2025 Billing Provider: RAFAL SHERWOOD MD Cardiology Common Codes: [id number] INP/OBS CARE (High) ADALBERTO BEAUCHAMP RESDIENT January 29, 2025 18:18
--- NOTE | 2025-01-29 21:58 | DVHPN2 ---
Progress Note - Dictate Date Seen: January 29, 2025 Medical Necessity Reason Pt with a Central, PICC or Fol: No Subjective Patient is awake alert in no acute distress Patient's hemoglobin stable at 8.2 Advanced his diet to a pureed diet Patient denied any further rectal bleeding he, he did have two dark greenish loose bowel movements since yesterday Upper endoscopy showed a duodenal bulb ulcer with overlying clot treated with the epinephrine injection He did have some residual melanotic liquid stool in the colon during my colonoscopy but no evidence of active colitis or C diff vital signs Vital Sign Date Time Temp Pulse Resp B/P (MAP) Pulse Ox O2 Delivery O2 Flow Rate FiO2 01/29/25 21:00 98.9 132 20 108/73 (85) 97 98.9 01/29/25 07:35 Room Air* 0 21 Total Intake and Output 01/28/25 01/28/25 01/29/25 15:00 23:00 07:00 Intake Total 160 ml 1500 ml 740 ml Balance 160 ml 1500 ml 740 ml medications Current Medications Medications Dose Ordered Sig/Prakash Route Start Time Stop Time Status Last Admin Dose Admin Acetaminophen/ Hydrocodone Bitart 1 tab Q4HP PRN PO 01/23/25 14:45 Ondansetron HCl 4 mg Q4HP PRN IV 01/23/25 14:45 01/25/25 12:23 4 MG Acetaminophen 650 mg Q6HP PRN PO 01/23/25 14:45 Morphine Sulfate 2 mg Q4HPRN PRN IV 01/23/25 14:45 Sucralfate 1 gm QID@0600,1130,1700,2200 PO 01/24/25 06:00 01/29/25 21:17 1 GM Metronidazole 100 ml @ 100 mls/hr Q8HR IV 01/24/25 22:00 01/29/25 21:17 100 MLS/HR Iron Sucrose 110 ml @ 110 mls/hr DAILY@1200 IV 01/26/25 12:00 01/30/25 12:59 01/29/25 12:24 110 MLS/HR Vancomycin HCl 125 mg QID PO 01/26/25 12:00 01/29/25 21:17 125 MG Lorazepam 0.5 mg Q6HPRN PRN PO 01/28/25 11:30 01/29/25 16:09 0.5 MG Pantoprazole Sodium 40 mg DAILY IV 01/30/25 10:00 objective HEENT pupils are reactive ;Mild pallor Neck is supple CV is S1-S2 regular rate and rhythm Respiratory are clear GI positive bowel sound 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 difficile diarrhea (4) Anemia (5) Coffee ground emesis (6) Gastroenteritis (7) Alcohol intoxication (8) Melena (9) Tachycardia determined by examination of pulse Prognosis PLAN Patient developed tachycardia this evening any also has underlying history of anxiety, awaiting cardiology consult Continue to monitor labs, CBC in a.m. Continue IV Protonix drip for another 24-48 hours Ativan as needed for anxiety Dietary Evaluation Review Comments: 1. Advance diet as medically feasible 2. Continue current POC Expected Outcomes/Goals: To meet >75% estimated needs GI symptoms to resolve Fu 2-3 days Plan discussed with: Patient RADHA GROSS MD January 29, 2025 21:58
[2025-01-30] VITALS (8 sets, daily range): BP systolic 95–127; BP diastolic 52–72; PULSE 78–130; RESP 18–20; TEMP 98.4–99.5; O2SAT 97–99
[2025-01-30 05:54] LABS: Eosinophils # (auto) 0.1 10 ^3/uL (0-0.8); Lymphocytes # (auto) 1.3 10 ^3/uL (0.4-5.4); Nucleated Red Blood Cells % 0.1 %; Red Blood Cells 2.58 10^6/uL (4.5-5.90)
[2025-01-30 05:58] LABS: Basophils # (auto) 0 10 ^3/uL (0-0.2); Basophils % (auto) 0.5 % (0.0-2.0); Eosinophils % (auto) 1.5 % (0.0-7.0); Hematocrit 23.5 % (41.0-53.0); Hemoglobin 8.1 g/dL (13.5-17.5); Lymphocytes % (auto) 15.9 % (10.0-50.0); Mean Corpuscular Hemoglobin 31.4 pg (28.0-32.0); Mean Corpuscular Hgb Conc. 34.5 g/dL (32.0-36.0); Mean Corpuscular Volume 91.1 fL (80.0-100.0); Monocytes # (auto) 0.8 10 ^3/uL (0-1.3); Monocytes % (auto) 9.4 % (0.0-12.0); Neutrophils # (auto) 5.9 10 ^3/uL (1.6-8.6); Neutrophils % (auto) 72.7 % (37.0-80.0); Platelet Count (auto) 257 10^3/uL (140-450); Red Cell Distribution Width 15.2 % (11.8-14.3); White Blood Cell 8.1 10^3/uL (4.4-10.8)
[2025-01-30] MEDS: PANTOPRAZOLE 40 MG/10 ML VIAL INJ IV SCH (10:51)
--- NOTE | 2025-01-30 11:19 | DVHPNRES ---
Progress Note Date Seen: January 30, 2025 Resident Creating Document: ADALBERTO BEAUCHAMP RESDIENT Medical Necessity Reason Pt with a Central, PICC or Fol: No Subjective Review of Systems Patient seen and examined at bedside. Patient is still complaining of palpitation. Objective vital signs Vital Sign Date Time Temp Pulse Resp B/P (MAP) Pulse Ox O2 Delivery O2 Flow Rate FiO2 01/30/25 09:00 98.4 125 19 127/66 (86) 98 98.4 01/29/25 20:00 Room Air* 0 21 Total Intake and Output 01/29/25 01/29/25 01/30/25 15:00 23:00 07:00 Intake Total 1260 ml 1700 ml 500 ml Balance 1260 ml 1700 ml 500 ml medications Current Medications Medications Dose Ordered Sig/Prakash Route Start Time Stop Time Status Last Admin Dose Admin Acetaminophen/ Hydrocodone Bitart 1 tab Q4HP PRN PO 01/23/25 14:45 Ondansetron HCl 4 mg Q4HP PRN IV 01/23/25 14:45 01/25/25 12:23 4 MG Acetaminophen 650 mg Q6HP PRN PO 01/23/25 14:45 Morphine Sulfate 2 mg Q4HPRN PRN IV 01/23/25 14:45 Sucralfate 1 gm QID@0600,1130,1700,2200 PO 01/24/25 06:00 01/30/25 10:50 1 GM Metronidazole 100 ml @ 100 mls/hr Q8HR IV 01/24/25 22:00 01/30/25 05:35 100 MLS/HR Iron Sucrose 110 ml @ 110 mls/hr DAILY@1200 IV 01/26/25 12:00 01/30/25 12:59 01/29/25 12:24 110 MLS/HR Vancomycin HCl 125 mg QID PO 01/26/25 12:00 01/30/25 05:35 125 MG Lorazepam 0.5 mg Q6HPRN PRN PO 01/28/25 11:30 01/30/25 10:50 0.5 MG Pantoprazole Sodium 40 mg DAILY IV 01/30/25 10:00 01/30/25 10:51 40 MG Examination General Appearance: Alert, Oriented X3, Cooperative, No acute distress HEENT: Atraumatic, PERRLA, EOMI, mucous membranes are pale Respiratory: Clear to auscultation, Normal air movement Cardiovascular: Regular rate, Normal S1, Normal S2, No murmurs, no chest wall tenderness Abdominal: Normal bowel sounds, Soft, No tenderness, No hepatospenomegaly, No masses Extremities: No clubbing, No cyanosis, No edema, Normal pulses, No tenderness/swelling Skin: Pale skin Neuro: Normal gait, Normal speech, Strength at 5/5 X4 ext, Normal tone, Sensation intact, Cranial nerves 3-12 NL, Reflexes 2+ Psych/Mental Status: Mental status NL, Mood NL laboratory and microbiology Laboratory Tests 01/30/25 05:00 01/29/25 07:48 Test 01/29/25 07:48 Range/Units Serum Glucose 95 74-106 mg/dL Microbiology Date/Time Source Procedure Growth Status 01/24/25 03:50 Stool Stool Culture - Final Complete 01/24/25 03:50 Stool Shiga Toxin I & II - Final Complete Labs and/or images reviewed: Labs reviewed by me, Image(s) reviewed by me Problem List/Assessment/Plan Problem List/Assessment/Plan Compensatory sinus tachycardia due to severe anemia Severe anemia, likely due due to bleeding Upper GI bleeding due to duodenal ulcer Lower GI bleeding due to internal hemorrhoids/gastroenteritis (due to C diff and shiga toxin)/polyp History of alcohol use disorder Anxiety/depression * EKGs shows sinus tachycardia with no significant ST or T-wave changes * Trop I and BNP are within normal limits Plan/Recommendation (Case discussed with Dr. Benavides) * Considering patient's current clinical status, active bleeding, no further cardiology workup required at the moment * We sign off the patient, Discharge plan: Upon discharge if the patient has tachycardia persisted we recommend to follow up with the Cardiology on outpatient basis * Keep K above 4, and Mag above 2 * Rest of plan, per primary team Thank you for allowing us to participate in this patient's care. Please call if you have any questions or concerns. Plan discussed with: Patient, Other (RN) My Orders My Orders Orders - ADALBERTO BEACUHAMP RESDIENT Procedure Category Date Status Time Drug Screen LAB 01/29/25 Logged 13:37 Dietary Evaluation Review Comments: 1. Advance diet as medically feasible 2. Continue current POC Expected Outcomes/Goals: To meet >75% estimated needs GI symptoms to resolve Fu 2-3 days Visit Coding Cardiology RES Date of Service: January 30, 2025 Billing Provider: MIKALA BENAVIDES Sr., MD Cardiology Common Codes: [id number] SAME DATE (High) ADALBERTO BEAUCHAMP RESDIENT January 30, 2025 11:19
[2025-01-30] MEDS: METOPROLOL TARTRATE 25 MG TAB PO ONE (14:58)
--- NOTE | 2025-01-30 15:19 | DVHPN2 ---
Progress Note - Dictate Date Seen: January 30, 2025 Medical Necessity Reason Pt with a Central, PICC or Fol: No Subjective Patient is awake alert in no acute distress Patient's hemoglobin stable at 8.1 Tolerating pureed diet Patient denied any further rectal bleeding Upper endoscopy showed a duodenal bulb ulcer with overlying clot treated with the epinephrine injection He did have some residual melanotic liquid stool in the colon during my colonoscopy but no evidence of active colitis or C diff vital signs Vital Sign Date Time Temp Pulse Resp B/P (MAP) Pulse Ox O2 Delivery O2 Flow Rate FiO2 01/30/25 14:58 126 109/65 01/30/25 13:00 98.9 18 98 98.9 01/29/25 20:00 Room Air* 0 21 Total Intake and Output 01/29/25 01/29/25 01/30/25 15:00 23:00 07:00 Intake Total 1260 ml 1700 ml 500 ml Balance 1260 ml 1700 ml 500 ml medications Current Medications Medications Dose Ordered Sig/Prakash Route Start Time Stop Time Status Last Admin Dose Admin Acetaminophen/ Hydrocodone Bitart 1 tab Q4HP PRN PO 01/23/25 14:45 Ondansetron HCl 4 mg Q4HP PRN IV 01/23/25 14:45 01/25/25 12:23 4 MG Acetaminophen 650 mg Q6HP PRN PO 01/23/25 14:45 Morphine Sulfate 2 mg Q4HPRN PRN IV 01/23/25 14:45 Sucralfate 1 gm QID@0600,1130,1700,2200 PO 01/24/25 06:00 01/30/25 10:50 1 GM Metronidazole 100 ml @ 100 mls/hr Q8HR IV 01/24/25 22:00 01/30/25 14:52 100 MLS/HR Vancomycin HCl 125 mg QID PO 01/26/25 12:00 01/30/25 12:14 125 MG Lorazepam 0.5 mg Q6HPRN PRN PO 01/28/25 11:30 01/30/25 10:50 0.5 MG Pantoprazole Sodium 40 mg DAILY IV 01/30/25 10:00 01/30/25 10:51 40 MG Metoprolol Tartrate 12.5 mg BID PO 01/30/25 22:00 objective HEENT pupils are reactive ;Mild pallor Neck is supple CV is S1-S2 regular rate and rhythm Respiratory are clear GI positive bowel sound 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 difficile diarrhea (4) Anemia (5) Coffee ground emesis (6) Gastroenteritis (7) Alcohol intoxication (8) Tachycardia determined by examination of pulse Prognosis Plan Appreciate cardiology input, no further GI workup at this time, check echo results Patient is on IV iron There was consideration for transfusing one more unit PRBC to help build up his deficit DC IV Flagyl Advance to soft mechanical diet Possible discharge planning in a.m. if the patient is stable Protonix 40 mg p.o. twice a day Carafate 1 g p.o. twice a day Dietary Evaluation Review Comments: 1. Advance diet as medically feasible 2. Continue current POC Expected Outcomes/Goals: To meet >75% estimated needs GI symptoms to resolve Fu 2-3 days Plan discussed with: Other (Dr fong) RADHA GROSS MD January 30, 2025 15:19
--- NOTE | 2025-01-30 16:10 | DVHPN2 ---
Subjective Patient currently tolerating full liquid diet, patient denies any bloody bowel movements. Patient's heart rate goes up to 150s to 160 upon minimal exertion. 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 Medications Current Medications Medications Dose Ordered Sig/Prakash Route Start Time Stop Time Status Last Admin Dose Admin Acetaminophen/ Hydrocodone Bitart 1 tab Q4HP PRN PO 01/23/25 14:45 Ondansetron HCl 4 mg Q4HP PRN IV 01/23/25 14:45 01/25/25 12:23 4 MG Acetaminophen 650 mg Q6HP PRN PO 01/23/25 14:45 Morphine Sulfate 2 mg Q4HPRN PRN IV 01/23/25 14:45 Sucralfate 1 gm QID@0600,1130,1700,2200 PO 01/24/25 06:00 01/30/25 10:50 1 GM Metronidazole 100 ml @ 100 mls/hr Q8HR IV 01/24/25 22:00 01/30/25 14:52 100 MLS/HR Vancomycin HCl 125 mg QID PO 01/26/25 12:00 01/30/25 12:14 125 MG Lorazepam 0.5 mg Q6HPRN PRN PO 01/28/25 11:30 01/30/25 10:50 0.5 MG Pantoprazole Sodium 40 mg DAILY IV 01/30/25 10:00 01/30/25 10:51 40 MG Metoprolol Tartrate 12.5 mg BID PO 01/30/25 22:00 Laboratory Results Laboratory Tests 01/29/25 07:48 01/30/25 05:00 HgA1c, TSH Test 01/30/25 05:00 Thyroid Stimulating Hormone (TSH) 0.93 uIU/mL (0.55-4.78) Urinalysis Test 01/24/25 06:55 Urine Color Light-yellow (Yellow) Urine Clarity Clear (Clear) Urine pH 6.0 (5.0-9.0) Urine Specific [place] 1.021 (1.001-1.035) Urine Protein Negative (Negative) Urine Ketones 2+ (Negative) H Urine Blood Negative /uL (Negative) Urine Nitrite Negative (Negative) Urine Bilirubin Negative (Negative) Urine Urobilinogen Normal mg/dL (Negative) Urine Leukocyte Esterase Negative /uL (Negative) Urine RBC 1 /hpf (0 - 3) Urine Microscopic WBC 3 /HPF (0-3) Urine Squamous Epithelial Cells None seen /hpf (<5) Urine Bacteria None seen /hpf (None Seen) Urine Mucus Few (None Seen) Urine Glucose Normal mg/dL (Normal) Microbiology Microbiology Date/Time Source Procedure Growth Status 01/24/25 03:50 Stool Stool Culture - Final Complete 01/24/25 03:50 Stool Shiga Toxin I & II - Final Complete Assessment/Plan Assessment/Plan 34-year-old male with a known history of anxiety and depression currently not on any medications, chronic alcoholism presented to the hospital with coffee- ground emesis along with the diarrhea and black stools found to have 1. Shiga toxin one and two positive 2. Status post EGD and colonoscopy shows evidence of duodenal bulb ulcer and internal hemorrhoids 3. Diarrhea ruled in his C diff, currently diarrhea resolved 4. History of chronic alcoholism, quit 10 years ago 5. Chronic marijuana use 6. Acute anemia secondary to GI bleed, status post packed RBC 7. Sinus tachycardia, started on low-dose beta mike per Cardiology -transfuse 1 unit of packed RBC 01/30 -continue Protonix, clear liquid diet as tolerated, advance to full liquid diet continue IV antibiotics- Contact isolation, GI follow up for discharge plan Plan discussed with: Patient My Orders Orders - MONICA BONNER MD Procedure Category Date Status Time Transfuse Blood ORDERS 01/30/25 Transmitted Product 13:33 Date of Service: January 30, 2025 Billing Provider: MONICA BONNER MD Common Visit Codes: NOT BILLABLE MONICA BONNER MD January 30, 2025 16:10
[2025-01-30] MEDS: METOPROLOL TARTRATE 25 MG TAB PO SCH (21:32)
[2025-01-31] VITALS (12 sets, daily range): BP systolic 95–125; BP diastolic 60–73; PULSE 110–143; RESP 16–19; TEMP 97–98.8; O2SAT 97–100
[2025-01-31 08:47] LABS: Basophils # (auto) 0 10 ^3/uL (0-0.2); Basophils % (auto) 0.4 % (0.0-2.0); Eosinophils # (auto) 0.1 10 ^3/uL (0-0.8); Hematocrit 23.9 % (41.0-53.0); Hemoglobin 7.9 g/dL (13.5-17.5); Lymphocytes # (auto) 1.2 10 ^3/uL (0.4-5.4); Mean Corpuscular Hemoglobin 31.1 pg (28.0-32.0); Mean Corpuscular Hgb Conc. 33.2 g/dL (32.0-36.0); Mean Corpuscular Volume 93.7 fL (80.0-100.0); Monocytes # (auto) 0.8 10 ^3/uL (0-1.3); Neutrophils # (auto) 7.3 10 ^3/uL (1.6-8.6); Neutrophils % (auto) 77.6 % (37.0-80.0); Platelet Count (auto) 268 10^3/uL (140-450); Red Blood Cells 2.55 10^6/uL (4.5-5.90); Red Cell Distribution Width 17.3 % (11.8-14.3); White Blood Cell 9.5 10^3/uL (4.4-10.8)
[2025-01-31] MEDS: CHOLESTYRAMINE 4 GM POWDER PO SCH (13:00)
[2025-01-31] MEDS ORDERED: CHL4PW PO (13:02)
[2025-01-31] MEDS ORDERED: MET25T PO (13:02)
[2025-01-31] MEDS ORDERED: PANT40TA2 PO (13:02)
[2025-01-31] MEDS ORDERED: SUCR1SUS26 PO (13:02)
[2025-01-31] MEDS ORDERED: VANC125C3 PO (13:02)
--- NOTE | 2025-01-31 15:14 | DVHPN2 ---
Subjective Patient received 1 unit of packed RBC. Patient has walked in the hallway in front of [place] and heart rate went from 80s to 160. Beta mike will be increased. We will give aggressive IV hydration check orthostatic vitals. Patient denies any lightheadedness dizziness or fainting spell but does complain of palpitations. We will recheck stool for occult blood test and repeat H&H in the morning Reviewed: Care Plan Changes from previous H/P or p: No Changes Objective Vitals Vital Signs Date Time Temp Pulse Resp B/P (MAP) Pulse Ox O2 Delivery O2 Flow Rate FiO2 01/31/25 15:05 98.8 138 18 125/71 98.8 01/31/25 13:10 97 01/30/25 20:00 Room Air* 0 21 Intake/Output Intake and Output 01/31/25 07:00 Intake Total 1535 ml Balance 1535 ml Intake Oral 1125 ml IV Total 410 ml # Voids 5 # Bowel Movements 1 Exam HEENT pupils are reactive Neck is supple CV is S1-S2 regular rate and rhythm Respiratory are clear GI positive bowel sound 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 Medications Current Medications Medications Dose Ordered Sig/Prakash Route Start Time Stop Time Status Last Admin Dose Admin Acetaminophen/ Hydrocodone Bitart 1 tab Q4HP PRN PO 01/23/25 14:45 Ondansetron HCl 4 mg Q4HP PRN IV 01/23/25 14:45 01/25/25 12:23 4 MG Acetaminophen 650 mg Q6HP PRN PO 01/23/25 14:45 Morphine Sulfate 2 mg Q4HPRN PRN IV 01/23/25 14:45 Sucralfate 1 gm QID@0600,1130,1700,2200 PO 01/24/25 06:00 01/31/25 13:09 1 GM Vancomycin HCl 125 mg QID PO 01/26/25 12:00 01/31/25 13:09 125 MG Lorazepam 0.5 mg Q6HPRN PRN PO 01/28/25 11:30 01/31/25 13:09 0.5 MG Pantoprazole Sodium 40 mg DAILY IV 01/30/25 10:00 01/31/25 09:27 40 MG Cholestyramine Resin 4 gm Q12HR@,23 PO 01/31/25 13:00 Metoprolol Tartrate 25 mg BID PO 01/31/25 22:00 UNV Laboratory Results Laboratory Tests 01/29/25 07:48 01/31/25 07:46 Urinalysis Test 01/24/25 06:55 Urine Color Light-yellow (Yellow) Urine Clarity Clear (Clear) Urine pH 6.0 (5.0-9.0) Urine Specific [place] 1.021 (1.001-1.035) Urine Protein Negative (Negative) Urine Ketones 2+ (Negative) H Urine Blood Negative /uL (Negative) Urine Nitrite Negative (Negative) Urine Bilirubin Negative (Negative) Urine Urobilinogen Normal mg/dL (Negative) Urine Leukocyte Esterase Negative /uL (Negative) Urine RBC 1 /hpf (0 - 3) Urine Microscopic WBC 3 /HPF (0-3) Urine Squamous Epithelial Cells None seen /hpf (<5) Urine Bacteria None seen /hpf (None Seen) Urine Mucus Few (None Seen) Urine Glucose Normal mg/dL (Normal) Microbiology Microbiology Date/Time Source Procedure Growth Status 01/24/25 03:50 Stool Stool Culture - Final Complete 01/24/25 03:50 Stool Shiga Toxin I & II - Final Complete Assessment/Plan Assessment/Plan 34-year-old male with a known history of anxiety and depression currently not on any medications, chronic alcoholism presented to the hospital with coffee- ground emesis along with the diarrhea and black stools found to have 1. Shiga toxin one and two positive 2. Status post EGD and colonoscopy shows evidence of duodenal bulb ulcer and internal hemorrhoids 3. Diarrhea ruled in C diff, currently on vancomycin p.o. 4. History of chronic alcoholism, quit 10 years ago 5. Chronic marijuana use 6. Acute anemia secondary to GI bleed, status post packed RBC 7. Sinus tachycardia, suspect POTS started on low-dose beta mike per Cardiology -transfuse 1 unit of packed RBC 01/30, check stool occult blood test, repeat H&H in the morning, check orthostatic vitals Q shift -continue Protonix, aggressive IV hydration, diet as tolerated Contact isolation, GI follow up for discharge plan. Plan discussed with: Patient, Spouse My Orders Orders - MONICA BONNER MD Procedure Category Date Status Time Obtain Consent For: ORDERS 01/31/25 Transmitted 09:04 Vital Signs ISABEL 01/31/25 In Process 09:04 Administer Blood ISABEL 01/31/25 In Process Products 09:04 Cholestyramine Powder PHA 01/31/25 In Process (Questran Powder) 13:00 Discharge DISCHARGE 01/31/25 Transmitted 13:02 Metoprolol Tartrate PHA 01/31/25 Logged Tablet (Lopressor Ta 22:00 Stool Occult Blood LAB 01/31/25 Logged 15:04 Orthostatic Vital ORDERS 01/31/25 Transmitted Signs 22:00 Orthostatic Vital ORDERS 02/01/25 Transmitted Signs 10:00 Orthostatic Vital ORDERS 02/01/25 Transmitted Signs 22:00 Communication Order ORDERS 01/31/25 Transmitted 15:08 Date of Service: January 31, 2025 Billing Provider: MONICA BONNER MD Common Visit Codes: NOT BILLABLE MONICA BONNER MD January 31, 2025 15:13
[2025-01-31] MEDS: SODIUM CHLORIDE 0.9% 1,000 ML IV SCH (15:15)
--- NOTE | 2025-01-31 20:56 | DVHPN2 ---
Progress Note - Dictate Date Seen: January 31, 2025 Medical Necessity Reason Pt with a Central, PICC or Fol: No Subjective Patient is awake alert in no acute distress Patient's hemoglobin stable But trended down to 7.9 today He still has some dark stools and repeat stool for occult blood is pending Patient was given one more unit PRBC today His orthostatics are being measured and patient continues to have orthostatic tachycardia He is tolerating a soft mechanical diet IV Flagyl was discontinued Upper endoscopy showed a duodenal bulb ulcer with overlying clot treated with the epinephrine injection He did have some residual melanotic liquid stool in the colon during my colonoscopy but no evidence of active colitis or C diff vital signs Vital Sign Date Time Temp Pulse Resp B/P (MAP) Pulse Ox O2 Delivery O2 Flow Rate FiO2 01/31/25 18:47 121 120/73 (89) 143 95/64 (74) 111 109/62 (78) 01/31/25 17:00 98.4 19 100 98.4 01/31/25 08:00 Room Air* 0 21 Total Intake and Output 01/30/25 01/30/25 01/31/25 15:00 23:00 07:00 Intake Total 110 ml 875 ml 550 ml Balance 110 ml 875 ml 550 ml medications Current Medications Medications Dose Ordered Sig/Prakash Route Start Time Stop Time Status Last Admin Dose Admin Acetaminophen/ Hydrocodone Bitart 1 tab Q4HP PRN PO 01/23/25 14:45 Ondansetron HCl 4 mg Q4HP PRN IV 01/23/25 14:45 01/25/25 12:23 4 MG Acetaminophen 650 mg Q6HP PRN PO 01/23/25 14:45 Morphine Sulfate 2 mg Q4HPRN PRN IV 01/23/25 14:45 Sucralfate 1 gm QID@0600,1130,1700,2200 PO 01/24/25 06:00 01/31/25 18:51 1 GM Vancomycin HCl 125 mg QID PO 01/26/25 12:00 01/31/25 18:51 125 MG Lorazepam 0.5 mg Q6HPRN PRN PO 01/28/25 11:30 01/31/25 13:09 0.5 MG Pantoprazole Sodium 40 mg DAILY IV 01/30/25 10:00 01/31/25 09:27 40 MG Cholestyramine Resin 4 gm Q12HR@11,23 PO 01/31/25 13:00 01/31/25 13:00 4 GM Metoprolol Tartrate 25 mg BID PO 01/31/25 22:00 Sodium Chloride 1,000 ml @ 150 mls/hr Q6H40M IV 01/31/25 15:15 01/31/25 19:35 150 MLS/HR objective HEENT pupils are reactive ;Mild pallor Neck is supple CV is S1-S2 regular rate and rhythm Respiratory are clear GI positive bowel sound 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 difficile diarrhea (4) Anemia (5) Coffee ground emesis (6) Gastroenteritis (7) Melena Prognosis Plan Patient is currently on IV Protonix 40 mg q.12 hours and his Protonix drip was discontinued Patient is getting oral sucralfate and I see an order for cholestyramine started today for diarrhea control Continue to monitor labs ;TSH is normal Patient is tolerating a soft mechanical diet Repeat stool for occult blood may still be positive; monitor him clinically I will be out of town this weekend, please reconsult GI on-call if any active GI intervention is required over the next 2-3 days GI team will be standing by for repeat endoscopy if he shows sudden drop in his hemoglobin hematocrit or active bleeding Dietary Evaluation Review Comments: 1. Advance diet as medically feasible 2. Continue current POC Expected Outcomes/Goals: To meet >75% estimated needs GI symptoms to resolve Fu 2-3 days Plan discussed with: Patient, Other (Nurse) CC Plasma Assessment Blood Product Administration S: [id number] RADHA GROSS MD January 31, 2025 20:56
[2025-01-31] MEDS: METOPROLOL TARTRATE 25 MG TAB PO SCH (21:34)
[2025-02-01] VITALS (8 sets, daily range): BP systolic 98–129; BP diastolic 47–81; PULSE 99–137; RESP 18–20; TEMP 97.9–99.8; O2SAT 96–100
[2025-02-01 06:27] LABS: Eosinophils # (auto) 0.2 10 ^3/uL (0-0.8); Monocytes # (auto) 0.8 10 ^3/uL (0-1.3); Nucleated Red Blood Cells % 0.1 %; Red Blood Cells 2.58 10^6/uL (4.5-5.90)
[2025-02-01 06:30] LABS: Basophils # (auto) 0.1 10 ^3/uL (0-0.2); Eosinophils % (auto) 2.3 % (0.0-7.0); Hematocrit 23.6 % (41.0-53.0); Hemoglobin 7.9 g/dL (13.5-17.5); Lymphocytes # (auto) 1.5 10 ^3/uL (0.4-5.4); Mean Corpuscular Hemoglobin 30.8 pg (28.0-32.0); Mean Corpuscular Hgb Conc. 33.6 g/dL (32.0-36.0); Mean Corpuscular Volume 91.5 fL (80.0-100.0); Monocytes % (auto) 10.4 % (0.0-12.0); Neutrophils # (auto) 5.3 10 ^3/uL (1.6-8.6); Neutrophils % (auto) 67.3 % (37.0-80.0); Platelet Count (auto) 256 10^3/uL (140-450); White Blood Cell 7.9 10^3/uL (4.4-10.8)
[2025-02-01] MEDS: IRON SUCROSE COMPLEX 110 ML IV SCH (12:04)
--- NOTE | 2025-02-01 12:46 | DVHPN2 ---
Progress Note - Dictate Date Seen: February 01, 2025 Medical Necessity Reason Pt with a Central, PICC or Fol: No Subjective Patient is awake alert in no acute distress Patient's hemoglobin stable At 7.9 He still has some dark stools and repeat stool for occult blood is still positive Patient was supposed to have received one more unit of PRBC yesterday but Hb still at 7.9 His orthostatics are being measured and patient continues to have orthostatic tachycardia He is tolerating a soft mechanical diet IV Flagyl was discontinued Upper endoscopy showed a duodenal bulb ulcer with overlying clot treated with the epinephrine injection He did have some residual melanotic liquid stool in the colon during my colonoscopy but no evidence of active colitis or C diff vital signs Vital Sign Date Time Temp Pulse Resp B/P (MAP) Pulse Ox O2 Delivery O2 Flow Rate FiO2 02/01/25 09:00 98.8 111 18 122/72 (89) 99 98.8 111 122/72 (89) 01/31/25 20:00 Room Air* 0 21 Total Intake and Output 01/31/25 01/31/25 02/01/25 15:00 23:00 07:00 Intake Total 600 ml 3575 ml 1200 ml Output Total 400 ml Balance 600 ml 3575 ml 800 ml medications Current Medications Medications Dose Ordered Sig/Prakash Route Start Time Stop Time Status Last Admin Dose Admin Acetaminophen/ Hydrocodone Bitart 1 tab Q4HP PRN PO 01/23/25 14:45 Ondansetron HCl 4 mg Q4HP PRN IV 01/23/25 14:45 01/25/25 12:23 4 MG Acetaminophen 650 mg Q6HP PRN PO 01/23/25 14:45 Morphine Sulfate 2 mg Q4HPRN PRN IV 01/23/25 14:45 Sucralfate 1 gm QID@0600,1130,1700,2200 PO 01/24/25 06:00 02/01/25 11:56 1 GM Vancomycin HCl 125 mg QID PO 01/26/25 12:00 02/01/25 11:56 125 MG Lorazepam 0.5 mg Q6HPRN PRN PO 01/28/25 11:30 01/31/25 13:09 0.5 MG Pantoprazole Sodium 40 mg DAILY IV 01/30/25 10:00 02/01/25 08:59 40 MG Cholestyramine Resin 4 gm Q12HR@11,23 PO 01/31/25 13:00 02/01/25 11:57 4 GM Metoprolol Tartrate 25 mg BID PO 01/31/25 22:00 02/01/25 08:59 25 MG Sodium Chloride 1,000 ml @ 150 mls/hr Q6H40M IV 01/31/25 15:15 02/01/25 11:15 150 MLS/HR Iron Sucrose 110 ml @ 110 mls/hr DAILY@1200 IV 02/01/25 12:00 02/05/25 12:59 02/01/25 12:04 110 MLS/HR objective HEENT pupils are reactive ;Mild pallor Neck is supple CV is S1-S2 regular rate and rhythm Respiratory are clear GI positive bowel sound 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 difficile diarrhea (4) Anemia (5) Coffee ground emesis (6) Melena (7) Tachycardia determined by examination of pulse Prognosis Plan Patient is currently on IV Protonix 40 mg q.12 hours and his Protonix drip was discontinued Patient is getting oral sucralfate and I see an order for cholestyramine started today for diarrhea control Continue to monitor labs ;TSH is normal H/H q 12 hrs x 48 hrs ;Transfuse one more unit PRBC if hemoglobin is less than 7.5 Patient is tolerating a soft mechanical diet Repeat stool for occult blood is still positive; monitor him clinically I will be out of town this weekend, please reconsult GI on-call if any active GI intervention is required over the next 2-3 days GI team will be standing by for repeat endoscopy if he shows sudden drop in his hemoglobin hematocrit or active bleeding Dietary Evaluation Review Comments: 1. Advance diet as medically feasible 2. Continue current POC Expected Outcomes/Goals: To meet >75% estimated needs GI symptoms to resolve Fu 2-3 days Plan discussed with: Patient, Other (Nurse Roddy) CC Plasma Assessment Blood Product Administration S: [id number] RADHA GROSS MD February 01, 2025 12:46
--- NOTE | 2025-02-01 15:23 | DVHPN2 ---
Progress Note - Dictate Date Seen: February 01, 2025 Medical Necessity Reason Pt with a Central, PICC or Fol: No Subjective Patient is seen along with the nurse at bedside. Today he says he feels better. Palpitations have improved. Patient had bowel movement appeared to be formed and without any evidence of bleeding or dark colored stool. Hemoglobin remained stable at 7.9 last 48 hours. vital signs Vital Sign Date Time Temp Pulse Resp B/P (MAP) Pulse Ox O2 Delivery O2 Flow Rate FiO2 02/01/25 13:00 99.1 105 18 117/72 (87) 99 99.1 105 117/72 (87) 02/01/25 08:00 Room Air* 0 21 Total Intake and Output 01/31/25 01/31/25 02/01/25 15:00 23:00 07:00 Intake Total 600 ml 3575 ml 1200 ml Output Total 400 ml Balance 600 ml 3575 ml 800 ml medications Current Medications Medications Dose Ordered Sig/Prakash Route Start Time Stop Time Status Last Admin Dose Admin Acetaminophen/ Hydrocodone Bitart 1 tab Q4HP PRN PO 01/23/25 14:45 Ondansetron HCl 4 mg Q4HP PRN IV 01/23/25 14:45 01/25/25 12:23 4 MG Acetaminophen 650 mg Q6HP PRN PO 01/23/25 14:45 Morphine Sulfate 2 mg Q4HPRN PRN IV 01/23/25 14:45 Sucralfate 1 gm QID@0600,1130,1700,2200 PO 01/24/25 06:00 02/01/25 11:56 1 GM Vancomycin HCl 125 mg QID PO 01/26/25 12:00 02/01/25 11:56 125 MG Lorazepam 0.5 mg Q6HPRN PRN PO 01/28/25 11:30 01/31/25 13:09 0.5 MG Pantoprazole Sodium 40 mg DAILY IV 01/30/25 10:00 02/01/25 08:59 40 MG Cholestyramine Resin 4 gm Q12HR@11,23 PO 01/31/25 13:00 02/01/25 11:57 4 GM Metoprolol Tartrate 25 mg BID PO 01/31/25 22:00 02/01/25 08:59 25 MG Sodium Chloride 1,000 ml @ 150 mls/hr Q6H40M IV 01/31/25 15:15 02/01/25 11:15 150 MLS/HR Iron Sucrose 110 ml @ 110 mls/hr DAILY@1200 IV 02/01/25 12:00 02/05/25 12:59 02/01/25 12:04 110 MLS/HR objective Alert awake oriented x3. HEENT neck supple no JVD. Heart regular rate and rhythm S1-S2. Lungs fair air movement without rales wheezes. Abdomen soft nontender positive bowel sounds. Extremities no edema positive pulses laboratory and microbiology Laboratory Tests 02/01/25 05:26 01/29/25 07:48 Test 01/29/25 07:48 Range/Units Serum Glucose 95 74-106 mg/dL Assessment/Plan Continue Protonix and Carafate as he is on. Advance diet as he tolerates. Continue Questran for diarrhea which seems to have improved. Repeat hemoglobin level in the morning. If hemoglobin remains relatively stable and patient remains asymptomatic consider discharge home tomorrow. This is discussed with the patient along with the nurse at bedside. Problems(with codes): (1) Shiga toxin 1 and Shiga toxin 2 detected (2) Duodenal bulb ulcer (3) C. difficile diarrhea (4) Anemia Dietary Evaluation Review Comments: 1. Advance diet as medically feasible 2. Continue current POC Expected Outcomes/Goals: To meet >75% estimated needs GI symptoms to resolve Fu 2-3 days Plan discussed with: Patient CC Plasma Assessment Blood Product Administration S: [id number] GIANNA ROA MD February 01, 2025 15:23
[2025-02-01 16:16] LABS: Hematocrit 26.1 % (41.0-53.0); Hemoglobin 8.6 g/dL (13.5-17.5)
--- NOTE | 2025-02-01 18:31 | DVH ---
Left Upper Extremity Venous Duplex Clinical History: RED AND WARM LUE Comparison: None Technique: Duplex Doppler evaluation of the venous system of the left lower neck and upper extremity including c olor Doppler and spectral/pulsed waveform analysis was performed. Findings: The internal jugular vein demonstrates appropriate compressibility and waveform variability. The subclavian vein is patent on color Doppler evaluation without intraluminal thrombus and demonstra oralia waveform variability. The visualized portion of the brachiocephalic vein is patent on color Doppler evaluation without intr aluminal thrombus and demonstrates waveform variability. The axillary vein demonstrates appropriate compressibility and waveform variability. The brachial veins demonstrate appropriate compressibility and patency on Doppler evaluation. The basilic vein demonstrates appropriate compressibility and patency on Doppler evaluation. The cephalic vein demonstrates no flow or compressibility Impression: 1. No flow or compressibility to the left cephalic vein. 2. If clinical concern/symptoms persist or worsen, short-interval follow-up study is suggested.
[2025-02-02 01:00] VITALS: BP 107/56; PULSE 95; RESP 20; TEMP 97.9; O2SAT 97
[2025-02-02 04:51] VITALS: BP 107/58; PULSE 101; RESP 19; TEMP 97.1; O2SAT 96
[2025-02-02 06:55] LABS: Calcium 9.6 mg/dL (8.7-10.4); Potassium 3.6 mmol/L (3.5-5.1); Sodium 144 mmol/L (136-145)
[2025-02-02 06:56] LABS: Anion Gap 8 (5-15); Carbon Dioxide 28 mmol/L (20-31)
[2025-02-02 07:01] LABS: Glucose 86 mg/dL (74-106)
[2025-02-02 07:02] LABS: Magnesium 2.2 mg/dL (1.6-2.6)
[2025-02-02 07:03] LABS: BUN/Creatinine Ratio 6.9 (10.0-20.0); Blood Urea Nitrogen < 5 mg/dL (9-23); Chloride 108 mmol/L (98-107)
[2025-02-02 08:00] VITALS: PULSE 103; PULSE 110; RESP 18; O2SAT 100
[2025-02-02] MEDS ORDERED: PROP1TAB51 PO (08:04)
[2025-02-02] MEDS ORDERED: VANC250C4 PO (08:04)
--- NOTE | 2025-02-02 08:05 | DVHDS2 ---
Discharge Summary Date of Admission January 23, 2025 at 14:35 Date of Discharge: February 02, 2025 Labs/Diagnostic Data: Laboratory Results Test 02/02/25 05:00 02/01/25 15:49 02/01/25 05:26 01/31/25 19:26 Sodium Level 144 mmol/L (136-145) Potassium Level 3.6 mmol/L (3.5-5.1) Chloride Level 108 mmol/L (98-107) Carbon Dioxide Level 28 mmol/L (20-31) Anion Gap 8 (5-15) Blood Urea Nitrogen < 5 mg/dL (9-23) Creatinine 0.72 mg/dL (0.700-1.30) Glomerular Filtration Rate Calc 123 mL/min (>90) BUN/Creatinine Ratio 6.9 (10.0-20.0) Serum Glucose 86 mg/dL (74-106) Calcium Level 9.6 mg/dL (8.7-10.4) Magnesium Level 2.2 mg/dL (1.6-2.6) Hemoglobin 8.6 g/dL (13.5-17.5) Hematocrit 26.1 % (41.0-53.0) White Blood Count 7.9 10^3/uL (4.4-10.8) Red Blood Count 2.58 10^6/uL (4.5-5.90) Mean Corpuscular Volume 91.5 fL (80.0-100.0) Mean Corpuscular Hemoglobin 30.8 pg (28.0-32.0) Mean Corpuscular Hemoglobin Concent 33.6 g/dL (32.0-36.0) Red Cell Distribution Width 17.0 % (11.8-14.3) Platelet Count 256 10^3/uL (140-450) Mean Platelet Volume 8.2 fL (6.9-10.8) Neutrophils (%) (Auto) 67.3 % (37.0-80.0) Lymphocytes (%) (Auto) 19.0 % (10.0-50.0) Monocytes (%) (Auto) 10.4 % (0.0-12.0) Eosinophils (%) (Auto) 2.3 % (0.0-7.0) Basophils (%) (Auto) 1.0 % (0.0-2.0) Neutrophils # (Auto) 5.3 10 ^3/uL (1.6-8.6) Lymphocytes # (Auto) 1.5 10 ^3/uL (0.4-5.4) Monocytes # (Auto) 0.8 10 ^3/uL (0-1.3) Eosinophils # (Auto) 0.2 10 ^3/uL (0-0.8) Basophils # (Auto) 0.1 10 ^3/uL (0-0.2) Nucleated Red Blood Cells 0.1 % Stool Occult Blood Positive (Negative) Stool Occult Blood Sample #3 (Negative) Test 01/30/25 05:00 01/29/25 07:48 01/27/25 05:42 01/24/25 06:55 Thyroid Stimulating Hormone (TSH) 0.93 uIU/mL (0.55-4.78) Troponin I High Sensitivity 6 ng/L (</=54) B-Type Natriuretic Peptide 6.69 pg/mL (0-100) Triglycerides Level 74 mg/dL (< 150) Cholesterol Level 98 mg/dL (< 200) LDL Cholesterol 51 mg/dL (< 100) HDL Cholesterol 34 mg/dL (40-59) Total Bilirubin 0.3 mg/dL (0.2-1.0) Aspartate Amino Transferase (AST) 11 U/L (13-40) Alanine Aminotransferase (ALT) 15 U/L (7-40) Alkaline Phosphatase 32 U/L (46-116) Total Protein 4.5 g/dL (5.7-8.2) Albumin 3.1 g/dL (3.2-4.8) Urine Color Light-yellow (Yellow) Urine Clarity Clear (Clear) Urine pH 6.0 (5.0-9.0) Urine Specific [place] 1.021 (1.001-1.035) Urine Protein Negative (Negative) Urine Ketones 2+ (Negative) Urine Blood Negative /uL (Negative) Urine Nitrite Negative (Negative) Urine Bilirubin Negative (Negative) Urine Urobilinogen Normal mg/dL (Negative) Urine Leukocyte Esterase Negative /uL (Negative) Urine RBC 1 /hpf (0 - 3) Urine Microscopic WBC 3 /HPF (0-3) Urine Squamous Epithelial Cells None seen /hpf (<5) Urine Bacteria None seen /hpf (None Seen) Urine Mucus Few (None Seen) Urine Glucose Normal mg/dL (Normal) Test 01/24/25 03:50 01/23/25 10:28 Stool for White Cells None seen Prothrombin Time 11.4 sec (9.3-11.8) Prothrombin Time INR 1.08 (0.9-1.15) Activated Partial Thromboplast Time 25.9 SEC (24.5-34.5) Lactic Acid Level 1.6 mmol/L (0.4-2.0) Lipase 43 U/L (12-53) Other Laboratory Tests 02/02/25 05:00 02/01/25 15:49 02/01/25 05:26 Brief Hx & Hospital Course: 34-year-old male with a no significant past medical history except anxiety and depression, chronic alcoholism initially presented to the hospital with a diarrhea for last three days. Patient was here seen two days ago for the same and his symptoms out better and he was discharged from ER. Patient has stated that he started having diarrhea again associated with a black stool with a bright red as well as coffee-ground emesis. Also complaining of lower abdominal pain. Recent CT abdomen and pelvis was done which shows no evidence of acute pathology. Patient was recommended to be admitted. Patient denies any NSAID use but does admit to alcohol use. He is admitted and evaluated by legal investigator underwent EGD. Please see the detailed EGD report. Patient received blood transfusions for anemia. His hemoglobin stabilized. Patient did not have any further signs of active bleeding. He is tolerating his diet. Patient is also noted to have C diff colitis as well as Shigella infection. Patient received antibiotics. His diarrhea is also improved. Patient also noted to be tachycardic while in the hospital. [place] possible POTS syndrome. Patient educated regarding this. He is started on low-dose beta mike and heart rate has improved sinus tachycardia in the low 90s. Patient remained asymptomatic without any complaints of palpitations dizziness or lightheadedness. Patient no complaints of chest pain or abdominal pain. Overall his acute problems and symptoms have been stabilized and resolved. Therefore it is felt he could be safely discharged home with continued outpatient treatment. I have prescribed vancomycin orally and apparently there is a co-pay more than 50 dollars which he could not effort. Therefore have changed prescription to Flagyl for colitis. Otherwise given overall clinically stable he has been discharged home. I have talked with the patient and his significant other along with the nurse at bedside regarding his hospital diagnosis, treatment he received, EGD findings, discharge medications, discharge instructions and follow-up plan of care. They have verbalized understanding of these and agree with the care plan as outlined. Operations or Procedures Operative Report DATE OF OPERATION: 01/25/25 PROCEDURE: Upper Endoscopy with biopsy and injection control of bleeding PREOPERATIVE INDICATION: The patient is a 34 -year-old male undergoing endoscopy for GI bleed melena and bright red blood per rectum POSTOPERATIVE DIAGNOSES: 1. Patient had a 1.5-2 cm duodenal bulb ulcer on the anterior surface of the duodenal bulb and postbulbar area with the overlying clot that could not be dislodged ; no active bleeding This was injected with 6 mL of [id number] epinephrine in all the edges and the base of the ulcer with no active bleeding or oozing at the end of the procedure 2. Dbtd-dl-acumycpr gastroduodenitis with hyperemia erythema and superficial erosions, no fresh or old blood in the stomach PROCEDURE PERFORMED BY: Radha Garcia GI NURSE: Ksenia SCOPE: Olympus videoendoscope. ASA CLASS: 2. PREOPERATIVE MEDICATIONS: Dr. Nitish Frazier PROCEDURE IN DETAIL: After obtaining an informed consent, the patient was placed on left lateral decubitus position. The patient was then sedated with the above medications. A bite block was placed between his teeth. The endoscope was then passed through the oropharynx, into the esophagus, and through the stomach and pylorus up to the second and third part of the duodenum. The endoscope was then withdrawn. The 2nd and 3rd part of the duodenal showed duodenitis. In the duodenal bulb and postbulbar area there was an active ulcer This was about 1.5-2 cm in size on the anterior surface of the duodenal bulb with a overlying clot which could not be dislodged with irrigation There was no active bleeding and only minimal oozing from the edge of the ulcer. This was injected with 6 mL of [id number] epinephrine There was no further active bleeding or oozing at the end of the procedure. The pre-pyloric area antrum and body showed mild gastritis with erosions On retroflexion the fundus cardia and angularis were normal. There was no other fresh or old blood in the stomach. The remaining distal and proximal esophagus and oropharynx were unremarkable The patient tolerated the procedure well without difficulty. COMPLICATIONS : None SPECIMENS: Duodenal biopsy Gastric biopsy DISPOSITION: Transfer to floor Stable PLAN: 1. Await for biopsy result 2. Will place pt on Protonix 40 mg bid IV 3. Ice chips and if he tolerates that we will start him on clear liquids again 4. Monitor labs and if he is stable then we will slowly advance diet in 24-48 hours 5. DC aspirin NSAIDs smoking alcohol 6. Outpatient follow up with me in 4-6 weeks to review results and discuss further management RADHA GARCIA MD January 25, 2025 15:31 Condition at Discharge: Stable Final Diagnosis/Problems List 4-year-old male with a known history of anxiety and depression currently not on any medications, chronic alcoholism presented to the hospital with coffee-ground emesis along with the diarrhea and black stools found to have 1. Shiga toxin one and two positive 2. Status post EGD and colonoscopy shows evidence of duodenal bulb ulcer and internal hemorrhoids 3. Diarrhea ruled in his C diff, currently diarrhea resolved 4. History of chronic alcoholism, quit 10 years ago 5. Chronic marijuana use 6. Acute anemia secondary to GI bleed, status post packed RBC 7. Sinus tachycardia, started on low-dose beta mike per Cardiology Discharge Disposition: Home Discharge Instruct/Medications Diet: Cardiac 2g Na,low cholest Activity: No Restrictions, As Tolerated Follow Up/Referral: with DR.Grover Serrano GI doctor for colitis and gastritits in 2 weeks Medications: as presribed New Medications: Metronidazole (Flagyl) 500 Mg Tab 1 TAB PO TID, #30 TAB Pantoprazole Sodium Sesquihydr (Protonix) 40 Mg Tab 40 MG PO DAILY, #30 TAB Propranolol HCl (Propranolol Hydrochloride) 10 Mg Tab 10 MG PO BID, #20 TAB Vancomycin HCl (Vancomycin HCl) 250 Mg Cap 250 MG PO TID, #30 CAP Cholestyramine (Questran Powder) 4 Gm Pw 4 GM PO Q12HR@11,23 for 7 Days, #14 POW Sucralfate (Carafate Susp) 1 Gm/10 Ml Ss 1 GM PO QID@0600,1130,1700,2200 for 30 Days, #120 ML Discharge Statement: "Patient was advised to return to the ER or call 911 if any headaches, dizziness, shortness of breath, chest pain, abdominal pain, bleeding, fevers, or worsening of medical condition. Patient was counseled about treatment plan, medications, possible side effects, patientverbalized understanding. All questions were answered to the best of my ability. This discharge took greater then 30 minutes in planning, reviewing documentation, counseling the patient, and discussing with other team members." ASSESSMENT ASSESSMENT Assessment 4-year-old male with a known history of anxiety and depression currently not on any medications, chronic alcoholism presented to the hospital with coffee- ground emesis along with the diarrhea and black stools found to have 1. Shiga toxin one and two positive 2. Status post EGD and colonoscopy shows evidence of duodenal bulb ulcer and internal hemorrhoids 3. Diarrhea ruled in his C diff, currently diarrhea resolved 4. History of chronic alcoholism, quit 10 years ago 5. Chronic marijuana use 6. Acute anemia secondary to GI bleed, status post packed RBC 7. Sinus tachycardia, started on low-dose beta mike per Cardiology GIANNA ROA MD February 02, 2025 08:05
[2025-02-02 08:31] VITALS: BP 131/78; PULSE 110; RESP 18; TEMP 98.3; O2SAT 100
[2025-02-02 10:44] VITALS: BP 131/78; PULSE 110; RESP 18; TEMP 98.6; O2SAT 96
[2025-02-02] MEDS ORDERED: METR-344 PO (12:23)
== END 2025-02-02 12:30 | disposition home or self-care (01) | DRG 241 ==
LOC: ER 09:59 → OVERFLOW 14:35 → WEST WING 18:40 → EAST 01-25 21:20 → TELE-EAST 01-26 03:46
PROVIDERS: ADMIT Hospitalist; ATTEND Hospitalist
PROC: 0DB98ZX Excision of Duodenum, Via Natural or Artificial Opening Endoscopic, Diagnostic (ICD-10-PCS; 2025-01-25)
PROC: 30233N1 Transfusion of Nonautologous Red Blood Cells into Peripheral Vein, Percutaneous Approach (ICD-10-PCS; 2025-01-25)
PROC: 3E0G8GC Introduction of Other Therapeutic Substance into Upper GI, Via Natural or Artificial Opening Endoscopic (ICD-10-PCS; 2025-01-25)
PROC: 0DBN8ZX Excision of Sigmoid Colon, Via Natural or Artificial Opening Endoscopic, Diagnostic (ICD-10-PCS; principal; 2025-01-25 14:39)
PROC: 0DB68ZX Excision of Stomach, Via Natural or Artificial Opening Endoscopic, Diagnostic (ICD-10-PCS; 2025-01-25 14:39)
DX: K29.91 Gastroduodenitis, unspecified, with bleeding (principal); A04.72 Enterocolitis due to Clostridium difficile, not specified as recurrent; K76.0 Fatty (change of) liver, not elsewhere classified; D62 Acute posthemorrhagic anemia; K26.4 Chronic or unspecified duodenal ulcer with hemorrhage; K29.81 Duodenitis with bleeding; F32.A Depression, unspecified; F10.20 Alcohol dependence, uncomplicated; K64.8 Other hemorrhoids; K63.5 Polyp of colon; F12.90 Cannabis use, unspecified, uncomplicated; F41.9 Anxiety disorder, unspecified; A03.9 Shigellosis, unspecified; R00.0 Tachycardia, unspecified; Z78.9 Other specified health status
CPT/HCPCS: 36415; 71045; 80048; 80053; 80061; 81001; 82270; 83605; 83690; 83735; 83880; 84443; 84484; 85014; 85018; 85025; 85048; 85610; 85730; 86850; 86900; 86901; 86920; 87045; 87493; 93005; 93971; G0378; J1100; J1756; J2250; J2405; J2470; J2704; J3490